=== PATIENT | male | born 1965 | race African-American/Black ===

== ENCOUNTER 2019-12-27 00:55 | Emergency (ER) | payer OTHER ==
[~2019-12-27] VITALS: Ht 175.3 cm; Wt 88.0 kg
[~2019-12-27 00:55] MED LIST: ANDROGEL1.25 GM TD; ANTIVERT25 MG PO; CITALOPRAM HBR40 MG PO; CLOMIPHENE CITR50 MG PO; CLONAZEPAM 1 MG1 M1 PO; COREG25 MG PO; HYDROCHLOROTH12.5 M1 PO; IBUPROFEN 600600 M1 PO; IBUPROFEN 800800 MG PO; LOPERAMIDE 2 MG2 M1 PO; METAXALONE800 MG PO; NORCO 5-325 TA1 EACH PO; PERCOCET 5-3251 EACH PO; PREDNISONE 20 M20 MG PO; PRINIVIL10 MG PO; PROBIOTIC1 EAC1 PO; PROMETHAZINE-C120 ML PO; PROTONIX40 M4 PO; TOPROL XL50 MG PO; ULTRAM 50MG TAB50 MG PO; VALIUM5 MG PO; ZOFRAN4 MG PO
[2019-12-27 02:22] VITALS: BP 178/111
== END 2019-12-27 14:51 | disposition home or self-care (01) ==
LOC: ER 00:55
DX: M54.5 Low back pain (principal); I10 Essential (primary) hypertension; F41.9 Anxiety disorder, unspecified; F32.9 Major depressive disorder, single episode, unspecified; Z88.1 Allergy status to other antibiotic agents; Z88.0 Allergy status to penicillin

== ENCOUNTER 2020-03-13 12:53 | Emergency (ER) | payer OTHER ==
[~2020-03-13] VITALS: Ht 175.3 cm; Wt 87.5 kg
[2020-03-13 13:48] LABS: HEMOGLOBIN 16.7 gm/dL (14.0-18.0); MCH 32.1 pg (26.0-34.0); MCV 94.4 fL (80.0-100.0); PLATELET COUNT 218 thou/uL (150-400); RBC 5.19 mil/uL (4.50-6.00); RDW 15.2 % (10.5-14.5); WBC 6.5 thou/uL (4.0-11.0)
[2020-03-13 13:59] LABS: CALCIUM 9.7 mg/dL (8.5-10.1); CREATININE 1.6 mg/dL (0.7-1.3); POTASSIUM 3.4 mmol/L (3.5-5.1)
[2020-03-13 14:06] LABS: ALBUMIN 3.8 g/dL (3.4-5.0); TOTAL BILIRUBIN 0.4 mg/dL (<0.1-1.0); TOTAL PROTEIN 7.5 g/dL (6.4-8.2)
[2020-03-13] MEDS ORDERED: BUTALB-APAP-CA1 EACH PO (15:00)
[2020-03-13 15:13] LABS: ABSOLUTE NEUTROPHILS 3.1 thou/uL (1.4-8.2); ANISOCYTOSIS SLIGHT
[2020-03-13 15:35] VITALS: BP 121/84
== END 2020-03-13 15:35 | disposition home or self-care (01) ==
LOC: ER 12:53
PROVIDERS: Physician Assistant
DX: R51 Headache (principal); F41.9 Anxiety disorder, unspecified; R53.1 Weakness; K30 Functional dyspepsia; I10 Essential (primary) hypertension; F32.9 Major depressive disorder, single episode, unspecified; Z86.73 Personal history of transient ischemic attack (TIA), and cerebral infarction without residual deficits; Z79.82 Long term (current) use of aspirin; Z79.899 Other long term (current) drug therapy; Z88.6 Allergy status to analgesic agent; Z88.0 Allergy status to penicillin; Z88.1 Allergy status to other antibiotic agents

== ENCOUNTER 2020-04-23 20:31 | Emergency (ER) | payer OTHER ==
[~2020-04-23] VITALS: Ht 175.3 cm; Wt 86.2 kg
[~2020-04-23 20:31] MED LIST changes: +BUTALB-APAP-CA1 EACH PO
[2020-04-23 21:29] LABS: HEMATOCRIT 51.5 % (42.0-52.0); HEMOGLOBIN 18.2 gm/dL (14.0-18.0); MCH 33.3 pg (26.0-34.0); MCHC 35.4 g/dL (28.0-37.0); MCV 94.1 fL (80.0-100.0); PLATELET COUNT 215 thou/uL (150-400); RBC 5.47 mil/uL (4.50-6.00); RDW 15.2 % (10.5-14.5); WBC 8.2 thou/uL (4.0-11.0)
[2020-04-23 21:34] LABS: CALCIUM 9.4 mg/dL (8.5-10.1); CREATININE 2.1 mg/dL (0.7-1.3); POTASSIUM 3.1 mmol/L (3.5-5.1)
[2020-04-23 21:40] LABS: ALBUMIN 4.1 g/dL (3.4-5.0); TOTAL BILIRUBIN 0.5 mg/dL (<0.1-1.0); TOTAL PROTEIN 8.1 g/dL (6.4-8.2)
[2020-04-23 21:54] LABS: URINE BILIRUBIN NEGATIVE (Negative); URINE BLOOD NEGATIVE (Negative); URINE CLARITY CLEAR; URINE COLOR YELLOW; URINE GLUCOSE-RANDOM* NEGATIVE (Negative); URINE KETONES NEGATIVE (Negative); URINE LEUKOCYTES-REFLEX NEGATIVE (Negative); URINE NITRITE-REFLEX NEGATIVE (Negative); URINE PROTEIN (DIPSTICK) NEGATIVE (Negative); URINE SPECIFIC GRAVITY 1.025 (1.005-1.035); URINE UROBILINOGEN 0.2 E.U./dl (0.2-1.0)
[2020-04-23 22:29] LABS: ABSOLUTE NEUTROPHILS 4.8 thou/uL (1.4-8.2); PLATELET ESTIMATE NORMAL
[2020-04-24] MEDS ORDERED: NORCO 5-325 TA1 EAC1 PO (02:39)
[2020-04-24] MEDS ORDERED: CIPROFLOXACIN500 M1 PO (02:39)
[2020-04-24] MEDS ORDERED: SENNA-DOCUSATE1 EAC1 PO (02:39)
[2020-04-24] MEDS ORDERED: FLAGYL500 M1 PO (02:39)
[2020-04-24 03:20] VITALS: BP 131/96
[2020-04-25] MEDS ORDERED: TESTOSTERONE BOOSTER PO (09:28)
[2020-04-25] MEDS ORDERED: DEPAKOTE 250MG250 MG PO (09:29)
[2020-04-25] MEDS ORDERED: HYDROCHLOROTHIA25 M1 PO (09:30)
[2020-04-25] MEDS ORDERED: PROBIOTIC1 EAC7 PO (09:31)
[2020-04-25] MEDS ORDERED: HYDROXYZINE PAM50 MG PO (09:31)
[2020-04-25] MEDS ORDERED: ASA81BEC PO (09:31)
[2020-04-25] MEDS ORDERED: VITAMIN C100 MG PO (09:31)
== END 2020-04-24 03:22 | disposition home or self-care (01) ==
LOC: ER 20:31
PROVIDERS: Emergency Medicine
DX: R10.32 Left lower quadrant pain (principal); R11.0 Nausea; R19.7 Diarrhea, unspecified; I10 Essential (primary) hypertension; Z88.0 Allergy status to penicillin; Z88.1 Allergy status to other antibiotic agents; Z88.6 Allergy status to analgesic agent; Z79.899 Other long term (current) drug therapy

== ENCOUNTER 2020-04-25 09:00 | Inpatient (IN) | payer OTHER ==
[~2020-04-25] VITALS: Ht 175.3 cm; Wt 103.4 kg
[2020-04-25 09:00] VITALS: BP 130/80
[~2020-04-25 09:00] MED LIST changes: +CIPROFLOXACIN500 M1 PO; +FLAGYL500 M1 PO; +NORCO 5-325 TA1 EAC1 PO; +SENNA-DOCUSATE1 EAC1 PO
[2020-04-25 09:25] LABS: HEMATOCRIT 49.5 % (42.0-52.0); HEMOGLOBIN 16.9 gm/dL (14.0-18.0); MCH 32.5 pg (26.0-34.0); MCHC 34.1 g/dL (28.0-37.0); MCV 95.4 fL (80.0-100.0); PLATELET COUNT 192 thou/uL (150-400); RBC 5.18 mil/uL (4.50-6.00); RDW 15.3 % (10.5-14.5); WBC 13.9 thou/uL (4.0-11.0)
[2020-04-25] MEDS ORDERED: TESTOSTERONE BOOSTER PO (09:28)
[2020-04-25] MEDS ORDERED: DEPAKOTE 250MG250 MG PO (09:29)
[2020-04-25] MEDS ORDERED: HYDROCHLOROTHIA25 M1 PO (09:30)
[2020-04-25] MEDS ORDERED: ASA81BEC PO (09:31)
[2020-04-25] MEDS ORDERED: PROBIOTIC1 EAC7 PO (09:31)
[2020-04-25] MEDS ORDERED: HYDROXYZINE PAM50 MG PO (09:31)
[2020-04-25] MEDS ORDERED: VITAMIN C100 MG PO (09:31)
[2020-04-25 09:34] LABS: CREATININE 1.8 mg/dL (0.7-1.3); POTASSIUM 3.3 mmol/L (3.5-5.1)
[2020-04-25 09:40] LABS: ALBUMIN 3.7 g/dL (3.4-5.0); TOTAL BILIRUBIN 0.7 mg/dL (0.2-1.0); TOTAL PROTEIN 7.6 g/dL (6.4-8.2)
[2020-04-25 09:47] LABS: ABSOLUTE NEUTROPHILS 10.4 thou/uL (1.4-8.2)
[2020-04-25 11:12] LABS: URINE BILIRUBIN NEGATIVE (Negative); URINE BLOOD NEGATIVE (Negative); URINE CLARITY CLEAR; URINE COLOR YELLOW; URINE GLUCOSE-RANDOM* NEGATIVE (Negative); URINE KETONES NEGATIVE (Negative); URINE LEUKOCYTES-REFLEX NEGATIVE (Negative); URINE NITRITE-REFLEX NEGATIVE (Negative); URINE PROTEIN (DIPSTICK) NEGATIVE (Negative); URINE SPECIFIC GRAVITY <= 1.005 (1.005-1.035); URINE UROBILINOGEN 0.2 E.U./dl (0.2-1.0)
[2020-04-25 13:45] LABS: AMP/METHAMP Negative (Negative); BARBITURATES Negative (Negative); BENZODIAZEPINES Negative (Negative); COCAINE Negative (Negative); METHADONE Negative (Negative); OPIATES POSITIVE (Negative); PCP Negative (Negative)
[2020-04-25 17:04] VITALS: BP 131/78
[2020-04-25 17:29] VITALS: BP 116/69
[2020-04-25 17:55] LABS: CHOLESTEROL 80 mg/dL (<200); HDL CHOLESTEROL 31 mg/dL (>40); LDL CHOLESTEROL 31 mg/dL (<100); TC:HDL 2.6 Ratio (Not establshd); TRIGLYCERIDE 91 mg/dL (<150); VLDL 18 mg/dL (<40)
--- NOTE | 2020-04-25 18:08 | NUR ---
REC REPORT ON PT AND REC PT AROUND 1806, A&0X4, TELE MONITORED, AMB INDEPENDENTLY, STATES HE WAS FEELING ILL IN HIS GUT FOR ABOUT EIGHT DAYS. CALL LIGHT AND ROOM INTRO. PT LIKES IT WARM, ALWAYS. OFFERRED WARM BLANKET. WILL NOTE ORDERS AND DO ADMISISON. ENCOURAGED PT TO USE CALL LIGHT FOR ANY NEEDS
--- NOTE | 2020-04-25 18:30 | NUR ---
PHARMACY: WAS UNABLE TO ENTER, HE STATES [facility] IN [place] OFF OF [address] AND [address] HE BELIEVES WAS UNABLE TO PLACE IN MED REC
[2020-04-25 19:27] VITALS: BP 130/72
[2020-04-26 00:17] VITALS: BP 105/71
[2020-04-26 03:08] LABS: GLYCOHEMOGLOBIN (HGB A1C) 5.3 % (4.8-5.6)
[2020-04-26 04:26] VITALS: BP 100/62
[2020-04-26 05:10] LABS: ALBUMIN 3.1 g/dL (3.4-5.0); CREATININE 1.6 mg/dL (0.7-1.3); MAGNESIUM 1.9 mg/dL (1.8-2.4); TOTAL BILIRUBIN 0.6 mg/dL (0.2-1.0); TOTAL PROTEIN 6.4 g/dL (6.4-8.2)
[2020-04-26 05:23] LABS: POTASSIUM 2.9 mmol/L (3.5-5.1)
--- NOTE | 2020-04-26 07:37 | NUR ---
PT REMAINS NPO, VSS, PRN PAIN MEDS GIVEN FOR ABDOMINAL PAIN, CRITICAL k+ REPLACED WITH 40MEQ OF k+ PO, VOIDING PER URINAL, WILL CON'T TO MONITOR PER PPOC, REPORT GIVEN TO NEXT SHIFT.
[2020-04-26 08:06] VITALS: BP 122/83
--- NOTE | 2020-04-26 17:37 | NUR ---
ASSUMED CARE OF PATIENT AT 0700. PATIENT COMPLAINTS OF GENERALIZED ABD PAIN AND USED PERCOCET X 1 AT THE BEGINNING OF THE SHIFT. PATIENT ADVANCED FROM NPO TO CLEAR LIQUIDS AND TOLERATED WELL. PATIENT UP ADLIB AND STEADY. IV ABX. PATIENT REDRAW OF POTASSIUM WAS WITHIN NORMAL LIMITS. PATIENT STATES THAT HIS PAIN IS EASING UP. PATIENT TO CONTINUE WITH POC.
[2020-04-26 21:17] VITALS: BP 137/78
[2020-04-27 04:04] LABS: MCH 32.7 pg (26.0-34.0); MCHC 34.3 g/dL (28.0-37.0); MCV 95.2 fL (80.0-100.0); RBC 4.31 mil/uL (4.50-6.00); RDW 14.8 % (10.5-14.5); WBC 8.8 thou/uL (4.0-11.0)
[2020-04-27 04:17] LABS: ALBUMIN 2.8 g/dL (3.4-5.0); CREATININE 1.4 mg/dL (0.7-1.3); MAGNESIUM 1.7 mg/dL (1.8-2.4); POTASSIUM 3.4 mmol/L (3.5-5.1); TOTAL BILIRUBIN 0.4 mg/dL (0.2-1.0); TOTAL PROTEIN 6.1 g/dL (6.4-8.2)
[2020-04-27 04:25] LABS: HEMOGLOBIN 14.1 gm/dL (14.0-18.0)
[2020-04-27 04:38] VITALS: BP 135/80
--- NOTE | 2020-04-27 06:18 | NUR ---
PATIENTS CARES WERE ASSUMED AT SHIFT CHANGE . PATIENT WAS ASSESSED AND MEDS WERE PASSED. PATIENT WAS VERY PAINFUL THOUGH THIS SHIFT. EVEN WITH THE OXY AND THE MORPHINE. PATIENT DOES CONTINUE WITH HIS CLEAR LIQUID DIET. HE HAD A VERY UNCOMFORTABLE NIGHT. HOURLY ROUNDS WERE DONE. THE BED IS IN A LOW AND LOCKED POSITION.
[2020-04-27 08:34] VITALS: BP 151/58
--- NOTE | 2020-04-27 14:28 | NUR ---
Chart reviewed. Pt noted to be pt pay with previous [employer] referrals from ER visits. Attempted to reach the pt x 2 to verify. Nursing reports that the pt is up ad parag in his room and that he uses the [facility]. The pt does have a pcp listed.
[2020-04-27 16:00] VITALS: BP 169/95
--- NOTE | 2020-04-27 20:09 | NUR ---
RECEIVED PT'S CARE AROUND 0740; PT. ON BED; RESTING WITH EYES CLOSED; EQUAL CHEST RISING NOTICED; SR ON THE MONITOR; DURING AM ASSESSMENT PT. AWAKE; AOX4; C/O PAIN OVER ABDOMEN; ST. PAIN MEDICATION DID HELP THROUGH THE NIGHT; PHYSICIAN NOTIFIED DURING ROUNDINGS; ORDERS ON PLACED; PRN PAIN MEDICATION GIVEN THROUGH THE DAY; FLUIDS RATE DECREASE TO 100 ML/H PER ORDER; EDUCATED ABOUT FALL PREVENTIONS & PAIN MANAGEMENT; EDUCATED ABOUT CL DIET; NEW IV STARTED OVER L. FA; ASSESSMENT CHARGED; FOLLOWING POC; PASSED ON REPORT;
[2020-04-27 20:25] VITALS: BP 148/75
--- NOTE | 2020-04-28 03:51 | NUR ---
ASSESSMENTS CHARTED, MEDS GIVEN CHARTED. RESTING IN BED DURING SHIFT C/O PAIN 6-9 DURING SHIFT, PAIN MEDS GIVEN CHARTED. RECEIVING FLUIDS, SINUS RHYTHM ON TELEMETRY, ON ROOM AIR, USING URINAL AT BEDSIDE, UP AT FARA IN ROOM. FALL PRECAUTIONS IN PLACE DURING SHIFT.
[2020-04-28 03:52] VITALS: BP 168/100
[2020-04-28 03:59] LABS: HEMATOCRIT 43.1 % (42.0-52.0); HEMOGLOBIN 14.6 gm/dL (14.0-18.0); MCH 32.2 pg (26.0-34.0); MCHC 33.9 g/dL (28.0-37.0); MCV 95.1 fL (80.0-100.0); RBC 4.53 mil/uL (4.50-6.00); RDW 14.6 % (10.5-14.5); WBC 8.4 thou/uL (4.0-11.0)
[2020-04-28 05:23] LABS: ALBUMIN 2.9 g/dL (3.4-5.0); CREATININE 1.4 mg/dL (0.7-1.3); POTASSIUM 3.2 mmol/L (3.5-5.1); TOTAL BILIRUBIN 0.5 mg/dL (0.2-1.0); TOTAL PROTEIN 6.5 g/dL (6.4-8.2)
[2020-04-28 05:46] LABS: CALCIUM 8.6 mg/dL (8.5-10.1)
[2020-04-28 07:46] VITALS: BP 142/94
[2020-04-28 11:38] VITALS: BP 161/96
[2020-04-28 15:31] VITALS: BP 151/89
--- NOTE | 2020-04-28 16:49 | NUR ---
ASSESSMENT CHARTED. PT ALERT AND ORIENTED. PRN PAIN MED GIVEN FOR ABD PAIN WITH PARTIAL RELIEF. ENCOURAGED TO AMBULATE IN THE ROOM. SEEN BY GI AND DR. MOURA. ORDERS NOTED. WILL CONTINUE TO MONITOR.
[2020-04-28 20:17] VITALS: BP 154/92
[2020-04-29 00:11] VITALS: BP 124/81
[2020-04-29 05:24] VITALS: BP 163/97
[2020-04-29 05:51] LABS: HEMATOCRIT 44.1 % (42.0-52.0); HEMOGLOBIN 15.2 gm/dL (14.0-18.0); MCH 32.6 pg (26.0-34.0); MCHC 34.5 g/dL (28.0-37.0); MCV 94.3 fL (80.0-100.0); RBC 4.67 mil/uL (4.50-6.00); RDW 14.7 % (10.5-14.5); WBC 8.6 thou/uL (4.0-11.0)
[2020-04-29 06:26] LABS: CALCIUM 8.5 mg/dL (8.5-10.1); CREATININE 1.3 mg/dL (0.7-1.3); PHOSPHORUS 2.5 mg/dL (2.5-4.9); POTASSIUM 3.4 mmol/L (3.5-5.1)
[2020-04-29 07:33] VITALS: BP 152/91
--- NOTE | 2020-04-29 15:34 | NUR ---
ASSUMED CARE AT 1100, SHIFT ASSESSMENT DONE, RECEIVING ANTIBIOTICS. REPORTED ABDOMINAL PAIN, PRN OXYCODONE GIVEN. ON FULL LIQUID DIET, TOLERATING WELL. WILL CONTINUE TO ASSESS AND ASSIST WITH ADLs NEEDED.
[2020-04-29 17:09] VITALS: BP 148/93
[2020-04-29 19:52] VITALS: BP 149/100
[2020-04-30 07:27] VITALS: BP 160/96
[2020-04-30 15:49] VITALS: BP 134/90
--- NOTE | 2020-04-30 17:46 | NUR ---
PT IS UP AD FARA IN HIS ROOM, VSS, PAIN CONTROLLED WITH ORAL ANALGESIC. PT IV IS PATENT RIGHT FOREARM. TOLERATING FULL LIQUID DIET. PT CALLS APPROPRIATELY, CALL LIGHT IN REACH. WILL CONTINUE TO MONITOR.
[2020-04-30 20:24] VITALS: BP 134/99
[2020-05-01 06:08] LABS: IgG 897 mg/dL (603-1613)
--- NOTE | 2020-05-01 07:38 | NUR ---
PROGRESS PT A/O X4 UP AD FARA VOIDING QS, REPORTS PAIN TO ABDOMEN AT A RATE OF 6 TO 8 TAKING OXYCODONE AND FENTANYL FOR BREAKTHROUGH PAIN. TOLERATING FULL LIQUID DIET PT LOOKING FORWARD TO ADVANCING DIET CONTINUE POC.
[2020-05-01 07:58] VITALS: BP 138/93
[2020-05-01 16:11] VITALS: BP 147/89
--- NOTE | 2020-05-01 16:17 | NUR ---
Received awake on bed. Due medications given as prescribed, able to swallow meds w/o difficulty. On room air. Vital signs stable. A+Ox4. On full liquid diet, tolerating well- no nausea, no vomiting and no abdominal pain noted- a/w physician's orders if ok to advance. Continent of bowel and bladder, able to use urinal and go to the toilet. With LR at 100cc/hr, infusing well at R AC. With mild weakness at L side due to history of CVA- assisted in ADLs and ambulating. Pt complained of constipation- seen and examined by GI PRIVATE TUTOR, Miralax given as prescribed, with suppository prescribed- given. To continue monitoring patient. Pt's diet progressed to soft fiber restricted for lunch- tolerated well; no nausea, no vomiting and no abdominal pain noted.
[2020-05-01 20:15] VITALS: BP 140/91
--- NOTE | 2020-05-02 06:00 | NUR ---
Pt. rested quietly at intervals during the night when checked on during frequent rounds. He c/o constipation and another bisacodyl suppository ordered with no result (see emar). Po pain med given for c/o abdominal pain with some relief noted. Bed alarm is on.
[2020-05-02 07:30] VITALS: BP 146/101
[2020-05-02] MEDS ORDERED: LEVAQUIN 500 M500 M2 PO (10:05)
[2020-05-02] MEDS ORDERED: FLAGYL500 M1 PO (10:05)
[2020-05-02] MEDS ORDERED: LISINOPRIL10 MG PO (10:12)
--- NOTE | 2020-05-02 14:38 | NUR ---
PT IS AOX4, VSS, NO PAIN ISSUES AT THIS TIME. PT UP AD FARA IN ROOM. PT HAD A BOWEL MOVEMENT. PT TOLERATING DIET. PT WILL DISCHARGE TODAY, TRYING TO CALL A RIDE. WILL LET ME KNOW WHAT TIME HE CAN LEAVE. CALL LIGHT IN REACH. WILL CONTINUE TO MONITOR.
[2020-05-02 15:11] VITALS: BP 145/91
[2020-05-02 17:14] VITALS: BP 147/101
== END 2020-05-02 19:43 | disposition home or self-care (01) | DRG 391 ==
LOC: ER 09:00 → 4W 13:04 → EROBS 13:04 → 2N 17:29 → 4W 04-29 09:57
PROVIDERS: Emergency Medicine; Nurse Practitioner; ADMIT Hospitalist
DX: K57.32 Diverticulitis of large intestine without perforation or abscess without bleeding (principal); K85.90 Acute pancreatitis without necrosis or infection, unspecified; I10 Essential (primary) hypertension; F32.9 Major depressive disorder, single episode, unspecified; F41.9 Anxiety disorder, unspecified; K21.9 Gastro-esophageal reflux disease without esophagitis; K59.00 Constipation, unspecified; Z86.73 Personal history of transient ischemic attack (TIA), and cerebral infarction without residual deficits; Z88.6 Allergy status to analgesic agent; Z88.1 Allergy status to other antibiotic agents; Z88.0 Allergy status to penicillin; Z88.8 Allergy status to other drugs, medicaments and biological substances; Z79.82 Long term (current) use of aspirin; Z79.899 Other long term (current) drug therapy; Z80.0 Family history of malignant neoplasm of digestive organs
CPT/HCPCS: 10047; 10081

== ENCOUNTER 2020-05-26 18:05 | Emergency (ER) | payer OTHER ==
[~2020-05-26] VITALS: Ht 175.3 cm; Wt 83.9 kg
[~2020-05-26 18:05] MED LIST changes: +ASA81BEC PO; +DEPAKOTE 250MG250 MG PO; +HYDROCHLOROTHIA25 M1 PO; +HYDROXYZINE PAM50 MG PO; +LEVAQUIN 500 M500 M2 PO; +LISINOPRIL10 MG PO; +PROBIOTIC1 EAC7 PO; +TESTOSTERONE BOOSTER PO; +VITAMIN C100 MG PO
[2020-05-26 18:28] LABS: URINE BILIRUBIN NEGATIVE (Negative); URINE BLOOD NEGATIVE (Negative); URINE CLARITY CLEAR; URINE COLOR YELLOW; URINE GLUCOSE-RANDOM* NEGATIVE (Negative); URINE KETONES NEGATIVE (Negative); URINE LEUKOCYTES-REFLEX NEGATIVE (Negative); URINE NITRITE-REFLEX NEGATIVE (Negative); URINE PROTEIN (DIPSTICK) NEGATIVE (Negative); URINE UROBILINOGEN 0.2 E.U./dl (0.2-1.0)
[2020-05-26 18:50] LABS: HEMATOCRIT 45.8 % (42.0-52.0); MCH 32.6 pg (26.0-34.0); MCHC 34.9 g/dL (28.0-37.0); MCV 93.4 fL (80.0-100.0); PLATELET COUNT 175 thou/uL (150-400); RBC 4.91 mil/uL (4.50-6.00); RDW 14.3 % (10.5-14.5); WBC 6.8 thou/uL (4.0-11.0)
[2020-05-26 19:02] LABS: CALCIUM 8.8 mg/dL (8.5-10.1); CREATININE 1.5 mg/dL (0.7-1.3); POTASSIUM 3.6 mmol/L (3.5-5.1)
[2020-05-26 19:08] LABS: ALBUMIN 3.4 g/dL (3.4-5.0); TOTAL BILIRUBIN 0.6 mg/dL (0.2-1.0); TOTAL PROTEIN 6.6 g/dL (6.4-8.2)
[2020-05-26 19:36] LABS: ABSOLUTE NEUTROPHILS 3.1 thou/uL (1.4-8.2); ATYPICAL LYMPHS 2 %
[2020-05-26] MEDS ORDERED: NORCO 5-325 TA1 EAC1 PO (20:42)
[2020-05-26] MEDS ORDERED: ZOFRAN ODT4 MG PO (20:42)
[2020-05-26] MEDS ORDERED: LEVAQUIN 750 M750 MG PO (20:42)
[2020-05-26 21:01] VITALS: BP 175/109
--- NOTE | 2020-05-27 09:59 | EKG ---
[facility] [place] [address] ELECTROCARDIOGRAM REPORT Name: KAY MEDEROS JERMAINE Room #: DEP [facility]#: [id number] Admission: 05/26/20 Attend Phys: Discharge: 05/26/20 Date of : 61 Report #: [id number] THIS REPORT FOR: cc: SHANNAN - Silvia family physician/PCP SHANNAN - Silvia family physician/PCP Kenneth Thibodeaux MD [facility] THIS REPORT FOR: //name// [facility] ED Test Date: 2020-05-26 Test Time: 18:29:31 Pat Name: KAY MEDEROS Department: Room: Gender: Specification Consultant: MYLES : 1965 Requested By: Jonelle Gunn Order Number: [id number] MD: Kenneth Thibodeaux Measurements Intervals [place] Rate: 84 P: 43 GA: 166 QRS: 19 QRSD: 95 T: 36 QT: 372 QTc: 440 Interpretive Statements Sinus rhythm RSR' in V1 or V2, right VCD Compared to ECG 10/04/2017 18:40:24 No significant changes Electronically Signed On 05-27-2020 9:59:00 CDT by Kenneth Thibodeaux [email or web address] <ELECTRONICALLY SIGNED> By: Kenneth Thibodeaux MD, FACC 05/27/20 0959 1829 1829 Kenneth Thibodeaux MD, [facility] /EPI
== END 2020-05-26 21:25 | disposition home or self-care (01) ==
LOC: ER 18:05
PROVIDERS: Nurse Practitioner Family
DX: K57.32 Diverticulitis of large intestine without perforation or abscess without bleeding (principal); I10 Essential (primary) hypertension; F32.9 Major depressive disorder, single episode, unspecified; F41.9 Anxiety disorder, unspecified; Z86.73 Personal history of transient ischemic attack (TIA), and cerebral infarction without residual deficits; Z79.899 Other long term (current) drug therapy; Z79.82 Long term (current) use of aspirin; Z88.6 Allergy status to analgesic agent; Z88.1 Allergy status to other antibiotic agents; Z88.0 Allergy status to penicillin

== ENCOUNTER 2020-07-21 12:24 | Emergency (ER) | payer OTHER ==
[~2020-07-21] VITALS: Ht 175.3 cm; Wt 84.8 kg
[~2020-07-21 12:24] MED LIST changes: +LEVAQUIN 750 M750 MG PO; +ZOFRAN ODT4 MG PO
[2020-07-21] MEDS ORDERED: LIPITOR 20 MG T20 M1 PO (13:03)
[2020-07-21 13:11] LABS: HEMATOCRIT 51.9 % (42.0-52.0); MCH 32.1 pg (26.0-34.0); MCHC 34.7 g/dL (28.0-37.0); MCV 92.3 fL (80.0-100.0); PLATELET COUNT 258 thou/uL (150-400); RBC 5.62 mil/uL (4.50-6.00); RDW 13.8 % (10.5-14.5); WBC 6.4 thou/uL (4.0-11.0)
[2020-07-21 13:20] LABS: ANION GAP 9 mmol/L (7-16); BUN 16 mg/dL (7-18); CALCIUM 9.8 mg/dL (8.5-10.1); CHLORIDE 103 mmol/L (98-107); CO2 27 mmol/L (21-32); CREATININE 1.7 mg/dL (0.7-1.3); GLUCOSE 94 mg/dL (74-106); SODIUM 139 mmol/L (136-145)
[2020-07-21 13:29] LABS: TROPONIN-I <0.06 ng/mL (<0.06)
[2020-07-21] MEDS ORDERED: NORCO 5-325 TA1 EAC2 PO (14:08)
[2020-07-21] MEDS ORDERED: KLOR-CON 1010 MEQ PO (14:08)
[2020-07-21 14:12] LABS: ABSOLUTE NEUTROPHILS 2.9 thou/uL (1.4-8.2); ANISOCYTOSIS 1+
[2020-07-21 14:23] VITALS: BP 147/98
--- NOTE | 2020-07-23 08:38 | EKG ---
[facility] [place] [address] ELECTROCARDIOGRAM REPORT Name: KAY MEDEROS JERMAINE Room #: DEP [facility].#: [id number] Admission: 07/21/20 Attend Phys: Discharge: 07/21/20 Date of : 61 Report #: [id number] THIS REPORT FOR: cc: SHANNAN Vega family physician/PCP SHANNAN - Silvia family physician/PCP Kenneth Thibodeaux MD [facility] THIS REPORT FOR: //name// [facility] ED Test Date: 2020-07-21 Test Time: 12:39:25 Pat Name: KAY MEDEROS Department: Room: Gender: Scale Clerk: macie : 1965 Requested By: Herlinda Kulkarni Order Number: [id number] MD: Kenneth Thibodeaux Measurements Intervals [place] Rate: 87 P: 38 AR: 174 QRS: 25 QRSD: 99 T: 61 QT: 384 QTc: 462 Interpretive Statements Sinus rhythm RSR' in V1 or V2, right VCD Compared to ECG 05/26/2020 18:29:31 No significant change was found Electronically Signed On 07-23-2020 8:38:34 CDT by Kenneth Thibodeaux [email or web address] <ELECTRONICALLY SIGNED> By: Kenneth Thibodeaux MD, [facility] 07/23/20 0838 1239 1239 Kenneth Thibodeaux MD, [facility] /EPI
== END 2020-07-21 14:23 | disposition home or self-care (01) ==
LOC: ER 12:24
PROVIDERS: Physician Assistant
DX: R07.89 Other chest pain (principal); E87.6 Hypokalemia; I10 Essential (primary) hypertension; Z79.82 Long term (current) use of aspirin; Z79.899 Other long term (current) drug therapy; Z88.0 Allergy status to penicillin; Z88.1 Allergy status to other antibiotic agents; Z88.6 Allergy status to analgesic agent; Z88.8 Allergy status to other drugs, medicaments and biological substances

== ENCOUNTER 2020-08-27 19:07 | Emergency (ER) | payer OTHER ==
[~2020-08-27] VITALS: Ht 175.3 cm; Wt 90.7 kg
[~2020-08-27 19:07] MED LIST changes: +KLOR-CON 1010 MEQ PO; +LIPITOR 20 MG T20 M1 PO; +NORCO 5-325 TA1 EAC2 PO
[2020-08-27 20:37] LABS: HEMATOCRIT 49.8 % (42.0-52.0); HEMOGLOBIN 16.8 gm/dL (14.0-18.0); MCH 31.2 pg (26.0-34.0); MCHC 33.7 g/dL (28.0-37.0); MCV 92.7 fL (80.0-100.0); PLATELET COUNT 232 thou/uL (150-400); RBC 5.37 mil/uL (4.50-6.00); RDW 14.7 % (10.5-14.5); WBC 7.5 thou/uL (4.0-11.0)
[2020-08-27 20:40] LABS: URINE BILIRUBIN NEGATIVE (Negative); URINE BLOOD NEGATIVE (Negative); URINE CLARITY CLEAR; URINE COLOR YELLOW; URINE GLUCOSE-RANDOM* NEGATIVE (Negative); URINE KETONES NEGATIVE (Negative); URINE LEUKOCYTES-REFLEX NEGATIVE (Negative); URINE NITRITE-REFLEX NEGATIVE (Negative); URINE PROTEIN (DIPSTICK) 2+ (Negative); URINE SPECIFIC GRAVITY 1.025 (1.005-1.035); URINE UROBILINOGEN 0.2 E.U./dl (0.2-1.0)
[2020-08-27 20:45] LABS: CALCIUM 9.4 mg/dL (8.5-10.1); CREATININE 1.4 mg/dL (0.7-1.3); MUCUS 0-3 Light strn/LPF (None Seen); POTASSIUM 3.2 mmol/L (3.5-5.1); URINE WBC-REFLEX 0-5 Rare /HPF (0-5)
[2020-08-27 20:47] LABS: BACTERIA-REFLEX 1-9 Few /HPF (None Seen); CRYSTALS None Seen /LPF (None Seen); URINE RBC 0-2 Rare /HPF (0-2)
[2020-08-27 20:48] LABS: HYALINE CASTS 4-10 Moderate /LPF (None Seen); SQUAMOUS 0-3 Few /LPF (0-3)
[2020-08-27 20:52] LABS: ALBUMIN 4.9 g/dL (3.4-5.0); TOTAL BILIRUBIN 0.5 mg/dL (0.2-1.0); TOTAL PROTEIN 7.8 g/dL (6.4-8.2)
[2020-08-27 21:13] LABS: ABSOLUTE NEUTROPHILS 3.5 thou/uL (1.4-8.2)
[2020-08-27 21:14] LABS: LARGE PLATELETS FEW; PLATELET ESTIMATE NORMAL
[2020-08-27] MEDS ORDERED: BACTRIM DS TAB1 EACH PO (22:12)
[2020-08-27] MEDS ORDERED: LIDOCAINE PAIN1 EACH TRANSDERM (22:12)
[2020-08-27] MEDS ORDERED: TRAMADOL 50 MG50 MG PO (22:12)
[2020-08-27 22:35] VITALS: BP 132/78
== END 2020-08-27 22:30 | disposition home or self-care (01) ==
LOC: ER 19:07
PROVIDERS: Physician Assistant; Student in an Organized Health Care Education/Training Program
DX: R10.9 Unspecified abdominal pain (principal); I10 Essential (primary) hypertension; Z79.82 Long term (current) use of aspirin; Z79.899 Other long term (current) drug therapy; Z88.0 Allergy status to penicillin; Z88.1 Allergy status to other antibiotic agents; Z88.6 Allergy status to analgesic agent; Z88.8 Allergy status to other drugs, medicaments and biological substances

== ENCOUNTER 2020-09-26 14:13 | Emergency (ER) | payer OTHER ==
[~2020-09-26] VITALS: Ht 175.3 cm; Wt 85.3 kg
[~2020-09-26 14:13] MED LIST changes: +BACTRIM DS TAB1 EACH PO; +LIDOCAINE PAIN1 EACH TRANSDERM; +TRAMADOL 50 MG50 MG PO
[2020-09-26] MEDS ORDERED: HYDROCHLOROTHIA25 M2 PO (14:41)
[2020-09-26 15:01] LABS: HEMOGLOBIN 17.6 gm/dL (14.0-18.0); MCH 31.6 pg (26.0-34.0); MCHC 33.8 g/dL (28.0-37.0); MCV 93.4 fL (80.0-100.0); PLATELET COUNT 232 thou/uL (150-400); RBC 5.57 mil/uL (4.50-6.00); RDW 14.8 % (10.5-14.5); WBC 6.7 thou/uL (4.0-11.0)
[2020-09-26 15:07] LABS: CALCIUM 9.9 mg/dL (8.5-10.1); CREATININE 1.7 mg/dL (0.7-1.3); POTASSIUM 3.2 mmol/L (3.5-5.1)
[2020-09-26 15:13] LABS: ALBUMIN 4.1 g/dL (3.4-5.0); TOTAL BILIRUBIN 0.6 mg/dL (0.2-1.0); TOTAL PROTEIN 8.2 g/dL (6.4-8.2)
[2020-09-26 15:15] LABS: APTT 33.6 Seconds (24.5-32.8); INR 1.1; PROTIME 11.4 Seconds (9.3-11.4)
[2020-09-26 15:38] LABS: ABSOLUTE NEUTROPHILS 3.5 thou/uL (1.4-8.2); PLATELET ESTIMATE NORMAL
[2020-09-26] MEDS ORDERED: BENTYL 10 MG CA10 MG PO (16:13)
[2020-09-26 16:28] VITALS: BP 147/92
== END 2020-09-26 16:30 | disposition home or self-care (01) ==
LOC: ER 14:13
PROVIDERS: Physician Assistant
DX: R10.32 Left lower quadrant pain (principal); I10 Essential (primary) hypertension; Z79.899 Other long term (current) drug therapy; Z88.0 Allergy status to penicillin; Z88.1 Allergy status to other antibiotic agents; Z88.8 Allergy status to other drugs, medicaments and biological substances; Z88.6 Allergy status to analgesic agent

== ENCOUNTER 2021-02-15 02:06 | Emergency (ER) | payer OTHER ==
[~2021-02-15] VITALS: Ht 170.2 cm; Wt 90.7 kg
[~2021-02-15 02:06] MED LIST changes: +BENTYL 10 MG CA10 MG PO; +HYDROCHLOROTHIA25 M2 PO
[2021-02-15 03:45] VITALS: BP 129/78
== END 2021-02-15 03:47 | disposition home or self-care (01) ==
LOC: ER 02:06
DX: G44.209 Tension-type headache, unspecified, not intractable (principal); I10 Essential (primary) hypertension; Z88.6 Allergy status to analgesic agent; Z88.1 Allergy status to other antibiotic agents; Z88.0 Allergy status to penicillin; Z79.899 Other long term (current) drug therapy; Z79.82 Long term (current) use of aspirin; Z86.73 Personal history of transient ischemic attack (TIA), and cerebral infarction without residual deficits; Z90.49 Acquired absence of other specified parts of digestive tract; Z98.890 Other specified postprocedural states

== ENCOUNTER 2021-02-27 01:37 | Emergency (ER) | payer OTHER ==
[~2021-02-27] VITALS: Ht 175.3 cm; Wt 92.5 kg
[2021-02-27 02:20] LABS: ABSOLUTE NEUTROPHILS 3.7 thou/uL (1.4-8.2); BASOPHILS 0.9 % (0.0-2.0); HEMATOCRIT 46.5 % (42.0-52.0); HEMOGLOBIN 15.6 gm/dL (14.0-18.0); LYMPHOCYTES 34.6 % (24.0-44.0); MCH 31.1 pg (26.0-34.0); MCHC 33.5 g/dL (28.0-37.0); MCV 92.8 fL (80.0-100.0); MONOCYTES 14.9 % (1.0-8.0); PLATELET COUNT 231 thou/uL (150-400); POLYS 46.6 % (36.0-66.0); RBC 5.01 mil/uL (4.50-6.00); RDW 14.2 % (10.5-14.5)
[2021-02-27 02:30] LABS: CREATININE 1.5 mg/dL (0.7-1.3); POTASSIUM 3.1 mmol/L (3.5-5.1)
[2021-02-27 02:36] LABS: ALBUMIN 3.8 g/dL (3.4-5.0); TOTAL BILIRUBIN 0.4 mg/dL (0.2-1.0); TOTAL PROTEIN 7.3 g/dL (6.4-8.2)
[2021-02-27 03:11] LABS: CSF CLARITY CLEAR; CSF COLOR COLORLESS; VOLUME 4 ml
[2021-02-27 03:17] LABS: CSF GLUCOSE 70 mg/dL (40-70)
[2021-02-27 03:52] LABS: CSF RBC 1.67 /mm3; CSF WBC 0.56 /mm3 (0-10)
[2021-02-27] MEDS ORDERED: ULTRAM 50MG TAB50 MG PO (04:00)
[2021-02-27 04:23] LABS: CSF EOSINOPHILS 0 %; CSF POLYS 10 %
[2021-02-27 04:24] LABS: CSF LYMPHOCYTES 75 % (40-80)
[2021-02-27 04:33] VITALS: BP 117/75
== END 2021-02-27 04:15 | disposition home or self-care (01) ==
LOC: ER 01:37
PROVIDERS: Emergency Medicine
DX: R51.9 Headache, unspecified (principal); I10 Essential (primary) hypertension; Z90.49 Acquired absence of other specified parts of digestive tract; Z79.82 Long term (current) use of aspirin; Z79.899 Other long term (current) drug therapy; Z88.0 Allergy status to penicillin; Z88.1 Allergy status to other antibiotic agents; Z88.6 Allergy status to analgesic agent; Z88.8 Allergy status to other drugs, medicaments and biological substances

== ENCOUNTER 2021-03-24 21:43 | Emergency (ER) | payer OTHER ==
[~2021-03-24] VITALS: Ht 175.3 cm; Wt 92.5 kg
[2021-03-24 21:47] VITALS: BP 151/91
[2021-03-24] MEDS ORDERED: PREDNISONE 20 M20 MG PO (22:10)
[2021-03-24] MEDS ORDERED: VISTARIL50 MG PO (22:10)
== END 2021-03-24 22:30 | disposition home or self-care (01) ==
LOC: ER 21:43
DX: T78.40XA Allergy, unspecified, initial encounter (principal); I10 Essential (primary) hypertension; Z90.49 Acquired absence of other specified parts of digestive tract; Z79.899 Other long term (current) drug therapy; Z88.0 Allergy status to penicillin; Z88.1 Allergy status to other antibiotic agents; Z88.6 Allergy status to analgesic agent; Z88.8 Allergy status to other drugs, medicaments and biological substances; Y92.89 Other specified places as the place of occurrence of the external cause

== ENCOUNTER 2021-04-14 19:59 | Emergency (ER) | payer OTHER ==
[~2021-04-14] VITALS: Ht 175.3 cm; Wt 92.5 kg
--- NOTE | ~2021-04-14 | EMS ---
[address] [address] EMS Patient Care Report Name: KAY MEDEROS Room #: DEP [facility]#: [id number] Admission: 04/14/21 Attend Phys: Discharge: 04/14/21 Date of : 61 Report #: [id number] THIS REPORT FOR: //name// Report Transmitted: 04/15/2021 23:02 EMS Care Summary [place], [place]/[facility] Incident [id number] @ 04/14/2021 19:26 Incident Location [address] [address] Patient KAY MEDEROS Male, 55 Years 1965 Patient Address [address] [address] Patient History Hypertension (HTN),Stroke/CVA,Anxiety Disorder (Panic Attacks), Patient Allergies Penicillin allergy, Patient Medications Clonazepam, Carvedilol, Chief Complaint Headache and dizziness Disposition Transported No Lights/[place] Dispatch Reason Stroke/CVA Transported To [facility] Narrative Initially dispatched with [facility] for a stroke. Upon EMS arrival patient was found sitting on his bed, field stroke exam being performed by [facility] FF/Medic, showing no obvious signs of distress, CAOx4. Patient stated that he [facility] [address] [place] [address] EMS Patient Care Report Name: KAY MEDEROS Room #: DEP ER Dorie#: [id number] Admission: 04/14/21 Attend Phys: Discharge: 04/14/21 Date of : 61 Report #: [id number] has a history of a stroke, hypertension, and anxiety. Patient reports that he has had a headache for two days that has not been resolved with over the counter medications and has been out of his Clonazipam for five days. He stated that he has had an increase of stress in his life lately. Field stroke exam was negative for deficits. Patient reports that approximately 10 minutes prior to calling 911 he had an onset of dizziness and muscle tremors in his cheeks. He stated that the dizziness comes and goes, but the tremors have been constant. Patient was assisted onto the stretcher, secured, and loaded into the ambulance. He was transported to [facility] without incident. Full report was given to RN prior to signing this document. Initial Vitals @19:35P: 105,R: 18,BP: 173/108,GCS: 15,SpO2: 97,Revised Trauma: 12, @19:46P: 99,R: 18,BP: 153/101,Pain: 0/10,GCS: 15,Glucose: 119,SpO2: 96,Revised Trauma: 12, Assessments @19:35MENTAL:No Abnormalities,SKIN:No Abnormalities,HEENT:Head/Face: KEVIN,Eyes: No Abnormalities,Neck/Airway: No Abnormalities,LUNG SOUNDS:ABDOMEN:PELVIS//GI:EXTREMITIES:Left Arm: No Abnormalities,Right Arm: No Abnormalities,Left Leg: No Abnormalities,Right Leg: No Abnormalities,PULSE:NEURO:Tremors, Impression Headache Procedures @19:35ALS AssessmentResponse: UnchangedSucceeded Timeline 19:24,Call Received 19:24,Dispatch Notified 19:26,Dispatched 19:27,En Route 19:32,On Scene 19:35,At Patient 19:35,ALS Assessment,Response: UnchangedSucceeded, 19:35,BP: 173/108 M,PULSE: 105,RR: 18 R,SPO2: 97 Ox,ETCO2: ,BG: ,PAIN: ,GCS: 15, 19:46,BP: 153/101 M,PULSE: 99,RR: 18 R,SPO2: 96 Ox,ETCO2: ,B,PAIN: 0,GCS: 15, 19:50,Depart Scene 19:56,At Destination 20:04,Call Closed Disclaimer [address] [address] EMS Patient Care Report Name: KAY MEDEROS JERMAINE Room #: DEP Dorie#: [id number] Admission: 04/14/21 Attend Phys: Discharge: 04/14/21 Date of : 61 Report #: [id number] v1.1 Copyright 2020 [employer] This EMS Care Summary contains data elements from the applicable legal record (which may be displayed differently). It is designed to provide pertinent information for the following purposes: continuity of care, clinical quality, and state data reporting. The complete legal record is available to ED staff and administrators of the receiving hospital in [facility]'s Patient Tracker. All data is provided "as is."
[~2021-04-14 19:59] MED LIST changes: +VISTARIL50 MG PO
[2021-04-14 20:46] LABS: ABSOLUTE NEUTROPHILS 5.7 thou/uL (1.4-8.2); BASOPHILS 0.9 % (0.0-2.0); EOSINOPHILS 2.1 % (0.0-3.0); HEMATOCRIT 47.7 % (42.0-52.0); HEMOGLOBIN 16.8 gm/dL (14.0-18.0); MCH 32.2 pg (26.0-34.0); MCHC 35.1 g/dL (28.0-37.0); MCV 91.8 fL (80.0-100.0); MONOCYTES 11.6 % (1.0-8.0); PLATELET COUNT 248 thou/uL (150-400); POLYS 61.4 % (36.0-66.0); RDW 14.6 % (10.5-14.5); WBC 9.2 thou/uL (4.0-11.0)
[2021-04-14 20:56] LABS: ANION GAP 12 mmol/L (7-16); BUN 12 mg/dL (7-18); CHLORIDE 103 mmol/L (98-107); CO2 26 mmol/L (21-32); CREATININE 1.7 mg/dL (0.7-1.3); GLUCOSE 115 mg/dL (74-106); POTASSIUM 3.3 mmol/L (3.5-5.1); SODIUM 141 mmol/L (136-145)
[2021-04-14 21:08] LABS: ALBUMIN 4.1 g/dL (3.4-5.0); DIRECT BILIRUBIN < 0.1 mg/dL (<0.1-0.2); MAGNESIUM 2.2 mg/dL (1.8-2.4); SGOT 18 U/L (15-37); SGPT 37 U/L (30-65); TOTAL BILIRUBIN 0.6 mg/dL (0.2-1.0); TROPONIN-I <0.06 ng/mL (<0.06)
[2021-04-14 21:32] VITALS: BP 145/84
[2021-04-14] MEDS ORDERED: NORVASC5 MG PO (21:40)
[2021-04-14] MEDS ORDERED: KLOR-CON 1010 MEQ PO (21:43)
[2021-04-14] MEDS ORDERED: ATIVAN1 M1 PO (21:43)
--- NOTE | 2021-04-15 08:48 | EKG ---
[place] [address] [facility] [place] [address] ELECTROCARDIOGRAM REPORT Name: REJI MEDEROSNIKIA DEAN [facility] [id number] Admission: 04/14/21 Attend Phys: Discharge: 04/14/21 Date of : 61 Report #: [id number] [facility] ED Test Date: 2021-04-14 Test Time: 20:23:49 Pat Name: KAY MEDEROS Department: Room: Gender: Neon Light Installer: am : 1965 Requested By: Gentry Salas Order Number: [id number] MD: Kenneth Thibodeaux Measurements Intervals [place] Rate: 81 P: 44 [place]: 170 QRS: 30 QRSD: 98 T: 31 QT: 371 QTc: 431 Interpretive Statements Sinus rhythm Normal tracing Compared to ECG 07/21/2020 12:39:25 No significant changes Electronically Signed On 04-15-2021 8:47:57 CDT by Kenneth Thibodeaux [email or web address] <ELECTRONICALLY SIGNED> By: Kenneth Thibodeaux MD, [facility] 04/15/21 0847 22 22 Kenneth Thibodeaux MD, FACC /EPI
== END 2021-04-14 22:29 | disposition home or self-care (01) ==
LOC: ER 19:59
PROVIDERS: Emergency Medicine
DX: R51.9 Headache, unspecified (principal); F41.9 Anxiety disorder, unspecified; I10 Essential (primary) hypertension; E87.6 Hypokalemia; Z88.6 Allergy status to analgesic agent; Z88.0 Allergy status to penicillin; Z88.1 Allergy status to other antibiotic agents; Z90.89 Acquired absence of other organs; Z86.73 Personal history of transient ischemic attack (TIA), and cerebral infarction without residual deficits

== ENCOUNTER 2021-05-21 18:51 | Emergency (ER) | payer OTHER ==
[~2021-05-21] VITALS: Ht 175.3 cm; Wt 89.8 kg
[2021-05-21 18:51] VITALS: BP 139/85
[~2021-05-21 18:51] MED LIST changes: +ATIVAN1 M1 PO; +NORVASC5 MG PO
[2021-05-21] MEDS ORDERED: ZPAK PO (20:09)
== END 2021-05-21 21:29 | disposition home or self-care (01) ==
LOC: ER 18:51
DX: H66.91 Otitis media, unspecified, right ear (principal); I10 Essential (primary) hypertension; Z79.82 Long term (current) use of aspirin; Z79.899 Other long term (current) drug therapy; Z90.49 Acquired absence of other specified parts of digestive tract; Z98.890 Other specified postprocedural states

== ENCOUNTER 2021-06-04 21:21 | Emergency (ER) | payer OTHER ==
[~2021-06-04] VITALS: Ht 175.3 cm; Wt 88.9 kg
[~2021-06-04 21:21] MED LIST changes: +ZPAK PO
[2021-06-04 21:24] VITALS: BP 149/97
[2021-06-04] MEDS ORDERED: MEDROLDOSEPACK PO (22:01)
[2021-06-04] MEDS ORDERED: FLEXERIL PO (22:01)
== END 2021-06-04 22:45 | disposition home or self-care (01) ==
LOC: ER 21:21
DX: S39.012A Strain of muscle, fascia and tendon of lower back, initial encounter (principal); I10 Essential (primary) hypertension; F32.9 Major depressive disorder, single episode, unspecified; F41.9 Anxiety disorder, unspecified; Z90.49 Acquired absence of other specified parts of digestive tract; Z98.890 Other specified postprocedural states; Z79.82 Long term (current) use of aspirin; Z79.899 Other long term (current) drug therapy; Z88.1 Allergy status to other antibiotic agents; Z88.6 Allergy status to analgesic agent; Z88.0 Allergy status to penicillin; X58.XXXA Exposure to other specified factors, initial encounter; Y93.89 Activity, other specified; Y92.098 Other place in other non-institutional residence as the place of occurrence of the external cause; Y99.8 Other external cause status

== ENCOUNTER 2022-01-04 16:55 | Inpatient (IN) | payer OTHER ==
[~2022-01-04] VITALS: Ht 175.3 cm; Wt 85.3 kg
--- NOTE | ~2022-01-04 | EMS ---
[address] [address] EMS Patient Care Report Name: KAY CRAVEN Room #: 355-P ADM IN M.R.#: [id number] Admission: 01/04/22 Attend Phys: Alberto Kapoor MD Discharge: Date of : 61 Report #: [id number] THIS REPORT FOR: //name// Report Transmitted: 01/07/2022 12:51 EMS Care Summary [place], [place]/[facility] Incident [id number] @ 01/04/2022 16:00 Incident Location [address] [address] Patient KAY CRAVEN Male, 56 Years 1965 Patient Address [address] [place] [address] Patient History Stroke/CVA,Post Traumatic Stress Disorder (PTSD), Patient Allergies No known allergies, Patient Medications ASA, Chief Complaint diarrhea Disposition Transported No Lights/[place] Dispatch Reason Sick Person Transported To [facility] Narrative 56 y/o male with diarrhea for 2 weeks Upon arrival the pt was sitting in his recliner in his living room. The pt is [address] [address] EMS Patient Care Report Name: KAY CRAVEN Room #: 355-P ADM IN MJazmyn.#: [id number] Admission: 01/04/22 Attend Phys: Alberto Kapoor MD Discharge: Date of : 61 Report #: [id number] awake, conscious A&O 4 with a GCS of 15. He has a patent airway, breathing is normal, and has a strong reg radial pulse. Pt is c/o diarrhea x 2 weeks. He also has been out of his PTSD medication for the last 2 weeks as well which is increasing his worry about being sick. The pt pt was assisted getting dressed. He was assisted to the cot, assisted to a position of comfort, secured to the cot, and loaded into the ambulance. VS were obtained. D-63. Pt was given a rice crispy treat to eat to increase his blood sugar. The pt was transported to [place] with out incident or changes to [place].. EMS returned to service. Initial Vitals @16:41P: 113,R: 14,BP: 153/90,Pain: 0/10,GCS: 15,Glucose: 63,SpO2: 91,Revised Trauma: 12, Assessments @16:47MENTAL:Person Oriented,Time Oriented,Event Oriented,Place Oriented,SKIN:HEENT:Head/Face: No Abnormalities,Neck/Airway: No Abnormalities,LUNG SOUNDS:General: No Abnormalities,ABDOMEN:General: No Abnormalities,PELVIS//GI:No Abnormalities,EXTREMITIES:Capillary Refill: Left Upper: < 2 Sec,Capillary Refill: Right Upper: < 2 Sec,Left Arm: No Abnormalities,Right Arm: No Abnormalities,Left Leg: No Abnormalities,Right Leg: No Abnormalities,PULSE:Radial: 2+ Normal,NEURO:No Abnormalities, Impression Diarrhea Procedures @16:46 ALS Assessment Response: UnchangedSucceeded Timeline 15:58,Call Received 15:58,Dispatch Notified 16:00,Dispatched 16:02,En Route 16:13,On Scene 16:14,At Patient 16:41,BP: 153/90 M,PULSE: 113,RR: 14 R,SPO2: 91 Ox,ETCO2: ,B,PAIN: 0,GCS: 15, 16:45,Depart Scene 16:46,ALS Assessment,Response: UnchangedSucceeded, 16:50,At Destination 17:05,Call Closed Disclaimer v1.1 Copyright 2021 [employer] This EMS Care Summary contains data elements from the applicable legal record [address] [address] EMS Patient Care Report Name: KAY CRAVEN Room #: 355-P ADM IN M.R.#: [id number] Admission: 01/04/22 Attend Phys: Alberto Kapoor MD Discharge: Date of : 61 Report #: [id number] (which may be displayed differently). It is designed to provide pertinent information for the following purposes: continuity of care, clinical quality, and state data reporting. The complete legal record is available to ED staff and administrators of the receiving hospital in [employer]'s Patient Tracker. All data is provided "as is."
[~2022-01-04 16:55] MED LIST changes: +FLEXERIL PO; +MEDROLDOSEPACK PO
[2022-01-04 16:58] VITALS: BP 143/85
[2022-01-04 17:45] LABS: ABSOLUTE NEUTROPHILS 7.5 thou/uL (1.4-8.2); BASOPHILS 0.2 % (0.0-2.0); EOSINOPHILS 0.1 % (0.0-3.0); HEMATOCRIT 48.6 % (42.0-52.0); HEMOGLOBIN 16.8 gm/dL (14.0-18.0); LYMPHOCYTES 13.6 % (24.0-44.0); MCH 30.5 pg (26.0-34.0); MCHC 34.5 g/dL (28.0-37.0); MCV 88.4 fL (80.0-100.0); MONOCYTES 11.7 % (1.0-8.0); PLATELET COUNT 257 thou/uL (150-400); POLYS 74.4 % (36.0-66.0); RDW 15.6 % (10.5-14.5); WBC 10.1 thou/uL (4.0-11.0)
[2022-01-04 18:01] LABS: CALCIUM 9.2 mg/dL (8.5-10.1); POTASSIUM 4.2 mmol/L (3.5-5.1)
[2022-01-04 18:06] LABS: ALBUMIN 3.5 g/dL (3.4-5.0)
[2022-01-04] MEDS ORDERED: LEXAPRO 10 MG T10 M2 PO (19:12)
[2022-01-04 21:01] VITALS: BP 115/69
[2022-01-04 21:03] VITALS: BP 113/71
[2022-01-04 22:16] VITALS: BP 127/85
--- NOTE | 2022-01-05 01:08 | NUR ---
PT ADMITTED FROM TO [facility] AROUND 2200. ALERT AND ORIENTED X4 BUT IS SLOW TO ANSWER QUESTIONS. PT COVID +. C/O WEAKNESS,SOA,COUGH, DIARRHEA AND URINARY AND STOOL INCONTINENCE AT TIMES WHICH HE STATED IS NEW. PT STATED HE FEELS LIKE HE IS LOSING HIS MIND, BECOMING WEAKER AND WOULD LIKE SOME ASSISTANCE FOR GETTING HELP AT DISCHARGE REGARDING POSSIBLE PLACEMENT TO REHAB OR SNF. ETC. INSTRUCTED PT ON FALL PRECAUTIONS. ORIENTED PT TO AND CALL LIGHT. BED DOWN CALL LIGHT IN REACH. BED ALARM IS ON. NS INFUSING AT 75ML/HR. PT WAS ABLE TO SWALLOW MEDS WHOLE BUT 1 AT A TIME. NOTIFIED CREDIT COUNSELOR RE DDIMER 1.17. VQ SCAN IN AM.VSS. AFEBRILE. RR 22-24 ON 2LNC. SAT 92%.
[2022-01-05 04:44] VITALS: BP 127/85
[2022-01-05 06:27] LABS: URINE BILIRUBIN NEGATIVE (Negative); URINE BLOOD 2+ (Negative); URINE CLARITY CLEAR; URINE COLOR YELLOW; URINE GLUCOSE-RANDOM* NEGATIVE (Negative); URINE KETONES NEGATIVE (Negative); URINE LEUKOCYTES-REFLEX NEGATIVE (Negative); URINE NITRITE-REFLEX NEGATIVE (Negative); URINE PROTEIN (DIPSTICK) 3+ (Negative); URINE SPECIFIC GRAVITY >= 1.030 (1.005-1.035)
--- NOTE | 2022-01-05 06:32 | NUR ---
PT IS RESTING QUIETLY PRESENTLY. INC OF STOOL X1. BED CAHNGED. PT STATED HE HAD "NIGHT SWEAT" . PT DRINKING PO FLUIDS AND IVF INFUSING WITHOUT DIFFICULTY. VOIDED X1. URINE SENT TO LAB.
[2022-01-05 06:42] LABS: HYALINE CASTS 0-3 Few /LPF (None Seen); MUCUS None Seen strn/LPF (None Seen); SQUAMOUS 0-3 Few /LPF (0-3)
[2022-01-05 06:43] LABS: BACTERIA-REFLEX None Seen /HPF (None Seen); CRYSTALS None Seen /LPF (None Seen); URINE RBC 1-2 Rare /HPF (NONE SEEN); URINE WBC-REFLEX 0-5 Rare /HPF (0-5)
[2022-01-05 07:24] VITALS: BP 123/78
[2022-01-05 10:43] LABS: HEMATOCRIT 46.1 % (42.0-52.0); HEMOGLOBIN 15.6 gm/dL (14.0-18.0); MCH 30.5 pg (26.0-34.0); MCHC 33.9 g/dL (28.0-37.0); MCV 90.2 fL (80.0-100.0); RBC 5.11 mil/uL (4.50-6.00); RDW 15.8 % (10.5-14.5); WBC 7.1 thou/uL (4.0-11.0)
[2022-01-05 10:52] LABS: CALCIUM 8.7 mg/dL (8.5-10.1); CREATININE 1.8 mg/dL (0.7-1.3); MAGNESIUM 2.5 mg/dL (1.8-2.4); POTASSIUM 3.7 mmol/L (3.5-5.1); TOTAL BILIRUBIN 0.6 mg/dL (0.2-1.0); TOTAL PROTEIN 8.1 g/dL (6.4-8.2)
[2022-01-05 11:18] VITALS: BP 128/82
[2022-01-05 15:27] VITALS: BP 126/79
--- NOTE | 2022-01-05 19:42 | NUR ---
RN ASSUMED PT'S CARE AT 0700-1900PM, PT IS A&OX4 , PT IS ON O2 2L/MIN/NC, PT'S VS AND O2SAT ARE STABLE AT DAY SHIFT, ID HAS SEEING THE PT, NEW ORDER RECEIVED, PT IS CONTINUING IV FLUID , IV ABX AND TREAT COVID MEDICATIONS, PT'S DAIRRHEA HAS IMPROVED, PT DENIES PAIN AND N/V. AT DAY SHIFT .
[2022-01-05 19:58] VITALS: BP 148/87
[2022-01-06 04:06] LABS: HIV ANTIBODY Non Reactive (Non Reactive)
[2022-01-06 04:20] VITALS: BP 147/82
[2022-01-06 04:53] LABS: ABSOLUTE NEUTROPHILS 10.6 thou/uL (1.4-8.2); BASOPHILS 0.2 % (0.0-2.0); HEMATOCRIT 43.2 % (42.0-52.0); HEMOGLOBIN 14.7 gm/dL (14.0-18.0); LYMPHOCYTES 5.8 % (24.0-44.0); MCH 30.6 pg (26.0-34.0); MCHC 34.1 g/dL (28.0-37.0); MCV 89.8 fL (80.0-100.0); MONOCYTES 9.4 % (1.0-8.0); PLATELET COUNT 290 thou/uL (150-400); POLYS 84.6 % (36.0-66.0); RBC 4.81 mil/uL (4.50-6.00); RDW 15.6 % (10.5-14.5); WBC 12.5 thou/uL (4.0-11.0)
[2022-01-06 04:57] LABS: DIRECT BILIRUBIN 0.2 mg/dL (<0.1-0.2); PHOSPHORUS 0.8 mg/dL (2.5-4.9)
[2022-01-06 04:59] LABS: ALBUMIN 2.7 g/dL (3.4-5.0); CALCIUM 8.8 mg/dL (8.5-10.1); CREATININE 1.5 mg/dL (0.7-1.3); MAGNESIUM 2.2 mg/dL (1.8-2.4); POTASSIUM 3.8 mmol/L (3.5-5.1); TOTAL BILIRUBIN 0.4 mg/dL (0.2-1.0); TOTAL PROTEIN 7.3 g/dL (6.4-8.2)
--- NOTE | 2022-01-06 05:22 | NUR ---
PT IS A&OX4 AND COMMUNICATES WANTS AND NEEDS TO STAFF. PRIOR HISTORY OF CVA WITH RESIDUAL LEFT SIDED WEAKNESS. PT IS ABLE TO STAND AND AMBULATE WITH SUPERVISION. PT C/O ABDOMINAL PAIN, STATED IT WAS R/T "THE WHITE PILL THEY GAVE ME THIS AFTERNOON," DETERMINED TO BE ZINC, WHICH PT THEN REFUSED AT 2200. MEDICATED WITH TYLENOL X1 WHICH WAS EFFECTIVE. VSS THROUGHOUT THE SHIFT. WILL CONTINUE TO OBSERVE FOR CHANGES
[2022-01-06 07:35] VITALS: BP 129/62
--- NOTE | 2022-01-06 09:07 | NUR ---
RD consult for high nutrition screen risk. Pt admit with covid pneumonia and symptoms include SOA, diarrhea, fatigue. Hx cva, pancreatitis, anxiety and depression. Wt loss 13 lb over 10 months which is not significant (6%). Intake 60-70% of meals and has oral supplement already ordered. On vitamin pack and IVF. presents low nutrition risk with appropriate nutrition interventions in place
--- NOTE | 2022-01-06 11:27 | NUR ---
INITIAL ASSESSMENT: Received consult for discharge planning. GABBY reviewed chart and spoke with nursing and attending physician. Pt was admitted from home due to COVID pneumonia/MANASA. Pt placed in Enhanced Isolation. Per chart, pt has received a COVID vaccination. Pt with hx of CVA, HTN, Depression, Anxiety. Pt is afebrile and on 3L of O2. Pt is on IV abx/IV steroids. Pt started on Remdesivir. Therapy evals ordered. GABBY placed call to pt's room. No answer. GABBY left voice message on listed contact number for pt: [phone]. Per notes, pt has concerns with returning back home alone and taking care of himself. GABBY will continue to reach pt to discuss discharge plan. GABBY contacted to determine pt's insurance and coverage for post-acute needs. GABBY is following to assist as needed with discharge planning.
[2022-01-06 11:48] VITALS: BP 144/88
--- NOTE | 2022-01-06 12:58 | EKG ---
[address] [address] ELECTROCARDIOGRAM REPORT Name: KAY CRAVEN Room #: 355-P ADM IN M.R.#: [id number] Admission: 01/04/22 Attend Phys: Alberto Kapoor MD Discharge: Date of : 61 Report #: [id number] [facility] Test Date: 2022-01-05 Test Time: 11:25:46 Pat Name: KAY CRAVEN Department: Room: 355 P Gender: M Electronics Lead: PATRICK : 1965 Requested By: Alberto Kapoor Order Number: [id number] MD: Aron Salas Measurements Intervals [place] Rate: 88 P: 51 [place]: 157 QRS: 9 QRSD: 86 T: 42 QT: 391 QTc: 473 Interpretive Statements Sinus rhythm Abnormal R-wave progression, early transition Compared to ECG 04/14/2021 20:23:49 No significant changes Electronically Signed On 01-06-2022 12:58:03 WOODYARD OPERATOR by Aron Salas [email or web address] <ELECTRONICALLY SIGNED> By: Aron Salas MD, [facility] 01/06/22 1258 1125 1125 Aron Salas MD, FACC /EPI
--- NOTE | 2022-01-06 13:55 | NUR ---
CARE ASSUMED THIS AM, ALERT AND ORIENTED X4. DENIES ANY NAUSEA AND VOMITTING. CURRENTLY ON 5L OF OXYGEN. SOB WITH EXERTION. USES URINAL, UP TO BATHROOM WITH 1 ASSIST. CONTINUE TO BE IN ENHANCED ISOLATION. FALL PRECAUTIOSN IN PLACE. DENIES ANY NEEDS AT MOMENT. WILL CONTINUE TO MONITOR.
[2022-01-06 15:51] VITALS: BP 140/86
[2022-01-06 21:01] VITALS: BP 121/66
[2022-01-07 05:23] LABS: HEMATOCRIT 43.1 % (42.0-52.0); HEMOGLOBIN 14.5 gm/dL (14.0-18.0); MCH 30.2 pg (26.0-34.0); MCHC 33.6 g/dL (28.0-37.0); MCV 89.9 fL (80.0-100.0); RBC 4.8 mil/uL (4.50-6.00); RDW 15.6 % (10.5-14.5); WBC 15.2 thou/uL (4.0-11.0)
--- NOTE | 2022-01-07 05:32 | NUR ---
PT SLOWLY PROGRESSING TOWARD GOALS. VSS THROUGHOUT THE SHIFT, BUT STILL REQUIRING SUPPLEMENTAL OXYGEN 5L (UP TO 8L WITH EXERTION). PT SLEPT BETTER TONIGHT THAN LAST NIGHT. STILL HAS C/O INTERMITTENT ABDOMINAL PAIN - RECEIVED ORDER FROM INFECTIOUS DISEASE TO D/C ZINC SUPPLEMENT WHICH MAY HAVE CONTRIBUTED TO ABDOMINAL DISCOMFORT. MAKES NEEDS KNOWN APPROPRIATELY. WILL CONTINUE TO OBSERVE FOR CHANGES
[2022-01-07 05:38] VITALS: BP 159/99
[2022-01-07 05:49] LABS: ALBUMIN 2.6 g/dL (3.4-5.0); CALCIUM 8.4 mg/dL (8.5-10.1); CREATININE 1.4 mg/dL (0.7-1.3); MAGNESIUM 1.9 mg/dL (1.8-2.4); POTASSIUM 3.5 mmol/L (3.5-5.1); TOTAL BILIRUBIN 0.4 mg/dL (0.2-1.0); TOTAL PROTEIN 6.8 g/dL (6.4-8.2)
[2022-01-07 05:57] LABS: DIRECT BILIRUBIN 0.2 mg/dL (<0.1-0.2); PHOSPHORUS 2.6 mg/dL (2.5-4.9)
[2022-01-07 07:44] VITALS: BP 146/89
[2022-01-07 11:16] VITALS: BP 120/72
--- NOTE | 2022-01-07 11:51 | NUR ---
GABBY reviewed chart and spoke with nursing and attending physician. Pt remains in Enhanced Isolation due to COVID. Pt is afebrile and on 6L of O2. Pt is on IV abx and IV steroids. Pt is on Remdesivir. Chest xray ordered for today. Pt listed as patient pay this morning. Per [employer], pt may have [employer] [facility] [place]. GABBY spoke with pt via phone. Introduced role of SW. Pt is alert/orientated x 4. Pt reports he lives alone in an apt. Prior to admission, pt was able to transfer himself into a w/c. Pt had his gall bladder removed at [facility] last month. Pt states he has used [facility] . Pt sees BRAILLE TRANSLATOR, Lizzy Vallecillo, for primary care. Pt states that he has had [employer] insurance since May of 2021. Pt was to switch to a new policy with [employer] on November 30, 2021. Pt states he has made his payments. Pt does not have his insurance cards with him. Pt confirmed his and SS#. SW notified UR. GABBY discussed case with [facility] facility rehab director for possible admission to [facility] acute rehab pending insurance verification. GABBY is following to assist as needed with discharge planning.
--- NOTE | 2022-01-07 12:18 | NUR ---
CARE TAKEN OVER THIS AM. PT OXYGEN NEED IS GOING, PT IS CURRENTLY ON 8L AFTER WALING TO THE BATH. SOB WITH EXERTION. INCENTIVE SPIROMETER GIVEN TO PT, AND EDUCARED ON HOW TO USE IT. FLUID STOP PER DR. SPENCER ORDER. USES URINAL, HAD A BM. UP IN THE CHAIR, ALARM ON. FALL PRECAUTIONS AND ENHAMCED ISOLATIONS IN PLACE. DENIES ANY NEEDS MARK, WILL CONTINUE TO MONITOR.
[2022-01-07 16:19] VITALS: BP 130/84
[2022-01-07 19:20] VITALS: BP 148/90
[2022-01-08 04:20] VITALS: BP 163/98
[2022-01-08 06:41] LABS: HEMATOCRIT 43.2 % (42.0-52.0); HEMOGLOBIN 14.5 gm/dL (14.0-18.0); MCH 29.7 pg (26.0-34.0); MCHC 33.5 g/dL (28.0-37.0); MCV 88.6 fL (80.0-100.0); RBC 4.88 mil/uL (4.50-6.00); RDW 15.4 % (10.5-14.5); WBC 14.6 thou/uL (4.0-11.0)
[2022-01-08 07:08] LABS: ALBUMIN 2.5 g/dL (3.4-5.0); CALCIUM 8.4 mg/dL (8.5-10.1); CREATININE 1.4 mg/dL (0.7-1.3); DIRECT BILIRUBIN 0.2 mg/dL (<0.1-0.2); MAGNESIUM 1.7 mg/dL (1.8-2.4); PHOSPHORUS 2.5 mg/dL (2.5-4.9); POTASSIUM 3.1 mmol/L (3.5-5.1); TOTAL BILIRUBIN 0.5 mg/dL (0.2-1.0); TOTAL PROTEIN 6.5 g/dL (6.4-8.2)
[2022-01-08 08:28] VITALS: BP 127/74
[2022-01-08 11:26] VITALS: BP 113/73
--- NOTE | 2022-01-08 11:28 | NUR ---
SW reviewed chart and spoke with nursing and attending physician. Pt remains in Enhanced Isolation due to COVID. Pt is afebrile and requiring 14L of O2. Pt is on IV abx, IV steroids and Remdesivir. [facility] consulted to evaluate pt for possible admission to inpt acute rehab. Pt's insurance was verified and confirmed. Pt has [employer] [facility] [place], which is currently active. [facility] rehab office coordinator to see if they are in-network with pt's insurance. SW spoke with pt via phone to provide update. Pt is agreeable with considering post-acute placement. SW is following to assist as needed with discharge planning.
--- NOTE | 2022-01-08 13:31 | NUR ---
CARE ASSUMED THIS AM, THIS AM PT O2 SAT WAS INTHE LOW 80'S. OXYGEN INCREASE TO 15L PER RT. DR. MAIN MADE AWARE, GAVE ORDERS FOR PULMONARY CONSULT. CONSULT CALLED IN AND DR. MON MADE AWARE. PT IC SURRENTLY ON OPTIFLOW, 85%, 55L SOB WITH EXERTION. PT ENCOURAGE TO USE INCENTIVE SPIROMETER AND PRONE WHEN CAN. CONTINUE PULSE OX ON PT. WILL CONTINUE TO MONITOR PT CLOSELY.
[2022-01-08 15:11] VITALS: BP 128/72
[2022-01-08 20:02] VITALS: BP 121/70
--- NOTE | 2022-01-09 00:52 | NUR ---
ACTEMRA ORDERED FOR PT. APPROACHED PT FOR PREMEDICATION PRIOR TO ACTEMRA DOSING BUT PT REFUSED. STATES HE WAS NOT AWARE THAT HE WOULD HAVE TO TAKE TYLENOL AND BENADRYL. "ONE BENADRYL KNOCKS ME OUT FOR A DAY AND YOU WANT ME TO TAKE TWO?!?" PT THEN REFUSED TO TAKE THE MEDICATION THOUGH [facility] INFORMED ABOUT THE USE. "I'LL TALK TO THE DOCTOR TOMORROW." PHARMACY INFORMED.
[2022-01-09 02:35] VITALS: BP 133/80
[2022-01-09 02:35] LABS: HEMATOCRIT 40.4 % (42.0-52.0); HEMOGLOBIN 13.6 gm/dL (14.0-18.0); MCH 30.1 pg (26.0-34.0); MCHC 33.7 g/dL (28.0-37.0); MCV 89.5 fL (80.0-100.0); RBC 4.52 mil/uL (4.50-6.00); RDW 15.8 % (10.5-14.5)
[2022-01-09 05:00] LABS: ALBUMIN 2.6 g/dL (3.4-5.0); CALCIUM 8.6 mg/dL (8.5-10.1); CREATININE 1.5 mg/dL (0.7-1.3); DIRECT BILIRUBIN 0.2 mg/dL (<0.1-0.2); PHOSPHORUS 3.7 mg/dL (2.5-4.9); TOTAL BILIRUBIN 0.4 mg/dL (0.2-1.0); TOTAL PROTEIN 5.8 g/dL (6.4-8.2)
[2022-01-09 05:03] LABS: POTASSIUM 4.1 mmol/L (3.5-5.1)
[2022-01-09 08:00] VITALS: BP 131/78
[2022-01-09 12:00] VITALS: BP 119/80
--- NOTE | 2022-01-09 13:29 | NUR ---
GABBY reviewed chart and spoke with nursing and attending physician. Pt remains in Enhanced Isolation due to COVID. Pt is afebrile and requiring optiflow. Pt is on IV abx and IV steroids. Remdesivir started. Pulm consulted. PT/OT ordered. GABBY discussed case with vocational rehabilitation teacher who states that is out of network with pt's insurance. Pt would be a candidate for inpt acute rehab when stable. GABBY is following to assist as needed with discharge planning.
[2022-01-09 15:54] VITALS: BP 116/74
[2022-01-09 19:27] VITALS: BP 141/88
[2022-01-10 03:22] VITALS: BP 151/98
[2022-01-10 07:41] VITALS: BP 139/90
--- NOTE | 2022-01-10 09:06 | NUR ---
PT ABLE TO SPEAK WITH DR. NEO REYES LAST NIGHT AND THEN WAS WILLING TO TAKE THE ORDERED ACTEMRA. PREMED AND DOSE GIVEN ORDERED WITHOUT ANY OBSERVABLE COMPLICATIONS.
[2022-01-10 11:28] VITALS: BP 114/76
--- NOTE | 2022-01-10 13:25 | NUR ---
GABBY reviewed chart and spoke with nursing and attending physician. Pt remains in Enhanced Isolation due to COVID. No weekend discharge planned. Pt is afebrile and was on optiflow earlier today. Pt is now on 6L of O2. Pt is on IV abx and IV steroids. GABBY spoke with pt via phone. Discharge disposition discussed: home with v. post-acute placement. Pt states he will need to see how therapy goes and then he will decide if he needs to consider post-acute placement. GABBY informed pt that is not in-network with his insurance. [facility] is in network and would be able to review pt's info if rehab is needed. Pt verbalized understanding. SW is following to assist as needed with discharge planning.
[2022-01-10 15:37] VITALS: BP 134/86
--- NOTE | 2022-01-10 17:57 | NUR ---
assumed care of pt at 0700. pt aox4 no acute distress. reporting no particular concerns. weaned to 6L NC. therapy efforts ongoing. ivf infusing per order. another round of remdesivir ordered per ID. calls out appropriately. good progress toward poc goals.
[2022-01-10 19:26] VITALS: BP 103/70
[2022-01-11 03:25] VITALS: BP 155/99
[2022-01-11 04:55] LABS: HEMATOCRIT 43.4 % (42.0-52.0); HEMOGLOBIN 14.5 gm/dL (14.0-18.0); MCH 30.1 pg (26.0-34.0); MCHC 33.4 g/dL (28.0-37.0); MCV 90.2 fL (80.0-100.0); PLATELET COUNT 393 thou/uL (150-400); RBC 4.81 mil/uL (4.50-6.00); WBC 12.5 thou/uL (4.0-11.0)
[2022-01-11 05:44] LABS: ALBUMIN 2.5 g/dL (3.4-5.0); CALCIUM 8.4 mg/dL (8.5-10.1); CREATININE 1.4 mg/dL (0.7-1.3); TOTAL BILIRUBIN 0.3 mg/dL (0.2-1.0); TOTAL PROTEIN 6.5 g/dL (6.4-8.2)
--- NOTE | 2022-01-11 06:00 | NUR ---
PROGRSS PT A/O X4. NON- AMBULATORY BUT REPOSITIONS SELF IN BED. 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 REPORTED A HEADACHE AND REQUESTED CLONAZEPAM, GIVEN WITH NO EFFECT. TYLENOL GIVEN FOR HEADACHE WITH EFFECT PT STATED HEADACHE RESOLVED AND SLEEPING AFTER. IV ABT'S ADMINISTERED ORDERED TAKING ADEQUAT PO FLUIDS AND EATING AN HS SNACK. IV INFILTRATED AND RESTARTD IN RH TOLERATED WELL.
--- NOTE | 2022-01-11 07:30 | NUR ---
PROGRESS PT A/O X4 LUNGS COARSE AND DIMINISHED DENIES COUGH AND SPUTUM. UP WITH 1 WALKER AND SBA. REMDESIVIR GIVEN ORDERED, IV TO LAC INFILTRATED NEW ONE PLACED RH. VOIDING QS CONTINUE POC.
[2022-01-11 07:43] VITALS: BP 126/77
[2022-01-11 07:46] LABS: ABSOLUTE NEUTROPHILS 9.5 thou/uL (1.4-8.2); MYELOCYTES 1 %
[2022-01-11 07:47] LABS: ANISOCYTOSIS 1+
[2022-01-11 11:14] VITALS: BP 111/73
[2022-01-11 15:15] VITALS: BP 118/78
[2022-01-11 19:10] VITALS: BP 152/89
[2022-01-12 04:34] VITALS: BP 138/92
[2022-01-12 06:14] LABS: HEMATOCRIT 42.3 % (42.0-52.0); HEMOGLOBIN 14.2 gm/dL (14.0-18.0); MCH 30.2 pg (26.0-34.0); MCHC 33.5 g/dL (28.0-37.0); MCV 90.2 fL (80.0-100.0); PLATELET COUNT 388 thou/uL (150-400); RBC 4.69 mil/uL (4.50-6.00); RDW 15.6 % (10.5-14.5); WBC 12.4 thou/uL (4.0-11.0)
[2022-01-12 06:28] LABS: ALBUMIN 2.5 g/dL (3.4-5.0); CALCIUM 8.3 mg/dL (8.5-10.1); CREATININE 1.3 mg/dL (0.7-1.3); POTASSIUM 3.9 mmol/L (3.5-5.1); TOTAL BILIRUBIN 0.3 mg/dL (0.2-1.0); TOTAL PROTEIN 6.2 g/dL (6.4-8.2)
--- NOTE | 2022-01-12 07:13 | NUR ---
PROGRESS PT A/O X4 LUNGS COARSE AND DIMINISHED. ON 6 LITERS VIA NC. VOIDING QS CLEAR YELLOW URINE HAD A BM PER BEDPAN. PT STATES HE IS AMBULATORY AT HOME BUT HAS A LIMP BUT DOESN'T GET OOB HERE. VSS TELEMETRY INTACT CONTINUE POC.
[2022-01-12 07:33] VITALS: BP 133/90
[2022-01-12 09:35] LABS: ABSOLUTE NEUTROPHILS 9.8 thou/uL (1.4-8.2)
[2022-01-12 09:46] LABS: ANISOCYTOSIS SLIGHT
--- NOTE | 2022-01-12 09:57 | NUR ---
Assumed care of pt this AM. Pt is A&O x4, SR on the monitor, on 6L NC. Pt denies any pain this AM. Pt upset stating that he has told "multiple doctors" that he cannot take the zinc that is ordered for him as it "upsets his stomach". Doesn't understand why it is still on his MAR & why "people want to make me feel worse". Explained that pt has right to refuse medications & that this nurse will discuss w/ provider to DC. Pt on continuous pulse ox, sating WNL. High fall precautions in place. Frequent rounding.
[2022-01-12 11:20] VITALS: BP 127/78
[2022-01-12 17:30] VITALS: BP 117/72
[2022-01-12 20:55] VITALS: BP 130/80
[2022-01-13 02:35] VITALS: BP 140/81
[2022-01-13 05:49] LABS: ABSOLUTE NEUTROPHILS 10.7 thou/uL (1.4-8.2); BASOPHILS 0.1 % (0.0-2.0); EOSINOPHILS 0.3 % (0.0-3.0); HEMOGLOBIN 14.1 gm/dL (14.0-18.0); LYMPHOCYTES 6.1 % (24.0-44.0); MCH 29.7 pg (26.0-34.0); MCHC 32.8 g/dL (28.0-37.0); MCV 90.4 fL (80.0-100.0); MONOCYTES 11.3 % (1.0-8.0); PLATELET COUNT 349 thou/uL (150-400); POLYS 82.2 % (36.0-66.0); RBC 4.75 mil/uL (4.50-6.00); WBC 13.1 thou/uL (4.0-11.0)
[2022-01-13 06:06] LABS: ALBUMIN 2.5 g/dL (3.4-5.0); CALCIUM 8.9 mg/dL (8.5-10.1); CREATININE 1.3 mg/dL (0.7-1.3); POTASSIUM 4.1 mmol/L (3.5-5.1); TOTAL BILIRUBIN 0.4 mg/dL (0.2-1.0)
[2022-01-13 07:53] VITALS: BP 107/73
--- NOTE | 2022-01-13 08:47 | NUR ---
progress pt progressing towards goals, vss, tele intact reading sr skin c/d/i no areas of breakdown noted. pt refuses scd's and repositions self in bed tolerating remdesivir. using isp and on 6 to 7 liters o2. denies pain continue poc.
[2022-01-13 11:12] LABS: T-SPOT.TB Negative
[2022-01-13 11:32] VITALS: BP 107/70
--- NOTE | 2022-01-13 11:40 | NUR ---
Followup: remains hospitalized for covid pneumonia. Wts are stable, and intake continue to average 60-95%. Recommend continue to offer oral supplement. Remains low nutrition risk
--- NOTE | 2022-01-13 11:54 | NUR ---
SW reviewed chart and spoke with nursing and attending physician. Enhanced Isolation precautions have been discontinued. Pt is on 7L of O2 at rest. Pt is on IV abx and IV steroids. Pt to finish course of Remdesivir tomorrow. Recommendation made for pt to consider post-acute placement for continued rehab services prior to returning home. GABBY met with pt at bedside to discuss rehab. SW explained that is out of network with pt's insurance. SW discussed alternate acute rehab options. Pt requests referral to be sent to [facility] due to location. SW explained process for evaluation and need for insurance auth. Pt verbalized understanding. SW faxed referral to [facility] and notified [facility] liaison of new referral. GABBY is following to assist as needed with discharge planning.
[2022-01-13 15:32] VITALS: BP 106/66
--- NOTE | 2022-01-13 18:55 | NUR ---
ASUMED PATIENT CARE THIS AM AT 0700. PATIENT REMAINED IN BED THROUGHOUT THE SHIFT. DENIED ANY COMPLAINTS THROUGHOUT THE SHIFT. FOLLOWED THE PLAN OF CARE.
--- NOTE | 2022-01-13 19:48 | NUR ---
PT RESTING IN BED WATCHING TV. O2 PER NC 6L. SOA WITH CONVERSATION. LUNGS COARSE, ABD DISTENDED. BED ALARM ON. PT REQUESTING HS SLEEPING MEDS EARLY ENOUGH THAT THEY START WORKING.
[2022-01-14 03:03] VITALS: BP 118/80
[2022-01-14 05:51] LABS: ALBUMIN 2.5 g/dL (3.4-5.0); CALCIUM 8.3 mg/dL (8.5-10.1); CREATININE 1.3 mg/dL (0.7-1.3); POTASSIUM 4.3 mmol/L (3.5-5.1); TOTAL BILIRUBIN 0.4 mg/dL (0.2-1.0); TOTAL PROTEIN 5.9 g/dL (6.4-8.2)
[2022-01-14 05:52] LABS: ABSOLUTE NEUTROPHILS 12.9 thou/uL (1.4-8.2); BASOPHILS 0.1 % (0.0-2.0); EOSINOPHILS 0.1 % (0.0-3.0); HEMATOCRIT 43.5 % (42.0-52.0); HEMOGLOBIN 14.1 gm/dL (14.0-18.0); LYMPHOCYTES 5.5 % (24.0-44.0); MCH 29.7 pg (26.0-34.0); MCHC 32.6 g/dL (28.0-37.0); MCV 91.2 fL (80.0-100.0); MONOCYTES 9.7 % (1.0-8.0); PLATELET COUNT 331 thou/uL (150-400); POLYS 84.6 % (36.0-66.0); RBC 4.76 mil/uL (4.50-6.00); RDW 16.1 % (10.5-14.5); WBC 15.3 thou/uL (4.0-11.0)
[2022-01-14 08:08] VITALS: BP 123/85
--- NOTE | 2022-01-14 10:37 | NUR ---
GABBY reviewed chart and spoke with nursing and attending physician. GABBY faxed clinical updates and PT note from yesterday to MAR for review. Notified [facility] liaison. Will need additional therapy notes to be faxed today. [facility] will need to obtain insurance auth for admission. GABBY is following to assist as needed with discharge planning.
[2022-01-14 11:44] VITALS: BP 116/76
[2022-01-14 16:12] VITALS: BP 129/83
[2022-01-14 18:59] VITALS: BP 129/76
[2022-01-15 03:26] VITALS: BP 121/84
[2022-01-15 05:20] LABS: HEMATOCRIT 43.4 % (42.0-52.0); HEMOGLOBIN 14.3 gm/dL (14.0-18.0); MCH 30.1 pg (26.0-34.0); MCV 91.2 fL (80.0-100.0); RBC 4.76 mil/uL (4.50-6.00); RDW 16.1 % (10.5-14.5); WBC 17.8 thou/uL (4.0-11.0)
[2022-01-15 05:56] LABS: CALCIUM 8.6 mg/dL (8.5-10.1); CREATININE 1.3 mg/dL (0.7-1.3); POTASSIUM 4.7 mmol/L (3.5-5.1)
[2022-01-15 07:42] VITALS: BP 112/71
[2022-01-15 11:30] VITALS: BP 115/83
--- NOTE | 2022-01-15 15:49 | NUR ---
GABBY reviewed chart and spoke with nursing and attending physician. Pt is slowly progressing towards goals for discharge. GABBY faxed clinical and therapy updates to [facility] liaison for review. Pt required 12-13L of O2 with physical therapy today. [facility] is able to accommodate 10L with exertion. Will need insurance auth for admission to [facility]. GABBY is following to assist as needed with discharge planning.
[2022-01-15 16:20] VITALS: BP 120/67
[2022-01-15 19:12] VITALS: BP 119/75
[2022-01-16] VITALS (7 sets, daily range): BP systolic 99–111; BP diastolic 59–81
--- NOTE | 2022-01-16 04:53 | NUR ---
PT IS SLOWLY PROGRESSING TOWARD GOAL OF DISCHARGE, THOUGH IS STILL REQUIRING O2 PER NASAL CANNULA AT 7L WITH SATS BETWEEN 90-96%. A&OX4 AND COMMUNICATES WANTS AND NEEDS TO STAFF EFFECTIVELY. VSS THROUGHOUT THE SHIFT. VOIDS PER URINAL. SLEPT COMFORTABLY THROUGHOUT MOST OF THE NIGHT. WILL CONTINUE TO OBSERVE FOR CHANGES
[2022-01-16 05:20] LABS: HEMATOCRIT 42.8 % (42.0-52.0); HEMOGLOBIN 14.8 gm/dL (14.0-18.0); MCH 31.7 pg (26.0-34.0); MCHC 34.5 g/dL (28.0-37.0); MCV 91.9 fL (80.0-100.0); RBC 4.66 mil/uL (4.50-6.00); WBC 10.3 thou/uL (4.0-11.0)
[2022-01-16 05:27] LABS: CALCIUM 8.5 mg/dL (8.5-10.1); CREATININE 1.3 mg/dL (0.7-1.3); MAGNESIUM 2.3 mg/dL (1.8-2.4); POTASSIUM 4.4 mmol/L (3.5-5.1)
--- NOTE | 2022-01-16 15:34 | NUR ---
PER GABBY, NINA PIERRE spoke with nursing and attending physician. Pt to have CTA today. Pt remains on O2 at rest and with activity. Pt required up to 12L with physical therapy yesterday. GABBY spoke with pt via phone to provide update. Discussed with pt that [facility] is following pt for admission when pt is medically stable. Will need insurance authorization from [facility]. Pt verbalized understanding and is agreeable with discharge plan. GABBY updated Fawn, liaison with [facility]. SW to fax clinical and therapy updates to [facility] tomorrow for review. GABBY notified by UR that pt's insurance is [facility]. [facility] to re-evaluate pt tomorrow. [facility] is able to accommodate 8L of O2 with exertion. GABBY is following to assist as needed with discharge planning. ARLEN Castro
[2022-01-17 04:15] VITALS: BP 98/64
[2022-01-17 05:24] LABS: HEMOGLOBIN 14.2 gm/dL (14.0-18.0); MCH 30.6 pg (26.0-34.0); MCV 92.9 fL (80.0-100.0); RBC 4.63 mil/uL (4.50-6.00); RDW 16.7 % (10.5-14.5); WBC 8.5 thou/uL (4.0-11.0)
--- NOTE | 2022-01-17 05:43 | NUR ---
PT SLOWLY PROGRESSING TOWARD GOAL OF DISCHARGE. PT STARTED ON ELIQUIS YESTERDAY R/T PE'S NOTED ON CT SCAN, TOLERATING WELL THUS FAR. PT WITH NO C/O PAIN. VOIDS PER URINAL. BP BORDERLINE LOW, ASYMPTOMATIC. VOIDING PER URINAL. WILL CONTINUE TO OBSERVE FOR CHANGES
[2022-01-17 05:59] LABS: CALCIUM 8.1 mg/dL (8.5-10.1); CREATININE 1.3 mg/dL (0.7-1.3); MAGNESIUM 2.3 mg/dL (1.8-2.4); POTASSIUM 4.7 mmol/L (3.5-5.1)
[2022-01-17 08:41] VITALS: BP 117/81
[2022-01-17 08:51] VITALS: BP 131/65
--- NOTE | 2022-01-17 12:18 | 2DMMODE ---
[facility] [place] [address] 2 D/M-MODE ECHOCARDIOGRAM Name: KAY CRAVEN Room #: 355-P ADM IN M.R.#: [id number] Admission: 01/04/22 Attend Phys: Alberto Kapoor MD Discharge: Date of : 61 Report #: [id number] THIS REPORT FOR: cc: ISABELLA DURAN MD Physician not on staff Aron Salas MD [facility] ~ APPROVED REPORT Study performed: 01/17/2022 10:58:59 EXAM: Comprehensive 2D, Doppler, and color-flow Echocardiogram Patient Location: Bedside Room #: [facility] Status: routine BSA: 2.04 HR: 82 bpm BP: 117/81 mmHg Rhythm: NSR Other Information Study Quality: Good Indications Pulmonary Embolism 2D Dimensions IVSd: 10.41 (7-11mm) LVOT Diam: 19.81 (18-24mm) LVDd: 40.29 mm PWd: 10.23 (7-11mm) Ascending Ao: 28.66 (22-36mm) LVDs: 24.68 (25-40mm) Left Atrium: 21.75 (27-40mm) Aortic Root: 26.03 mm IVC: 14.00 mm Aortic Valve AoV Peak Alek.: 0.90 m/s AO Peak Gr.: 3.27 mmHg LVOT Max P.09 mmHg LVOT Max V: 0.72 m/s YORDAN Vmax: 2.47 cm2 Mitral Valve E/A Ratio: 1.1 MV Decel. Time: 242.90 ms MV E Max Alek.: 0.65 m/s MV A Alek.: 0.61 m/s [facility] [address] [address] 2 D/M-MODE ECHOCARDIOGRAM Name: KAY CRAVEN Room #: 355-P [facility].#: [id number] Admission: 01/04/22 Attend Phys: Alberto Kapoor, Discharge: Date of : 61 Report #: [id number] MV PHT: 70.44 ms IVRT: 124.57 ms Pulmonary Valve PV Peak Alek.: 0.67 m/s PV Peak Gr.: 1.80 mmHg Pulmonary Vein P Vein S: 0.22 m/s P Vein A: 0.19 m/s P Vein D: 0.32 m/s P Vein A Dur.: 96.9 msec P Vein S/D Ratio: 0.69 Left Ventricle The left ventricle is normal size. There is normal LV segmental wall motion. There is normal left ventricular wall thickness. Left ventricular systolic function is normal. The left ventricular ejection fraction is within the normal range. LVEF is 60-65%. This study is not technically sufficient to allow evaluation of the LV diastolic function. Right Ventricle The right ventricle is normal size. The right ventricular systolic function is normal. Atria The left atrium size is normal. The right atrium size is normal. Right atrium size is normal. Right atrium is at the upper limits of normal. Aortic Valve The aortic valve is normal in structure. No aortic regurgitation is present. There is no aortic valvular stenosis. There is normal aortic valve excursion. No hemodynamically significant valvular aortic stenosis. Mitral Valve The mitral valve is normal in structure. There is no mitral valve regurgitation noted. No evidence of mitral valve stenosis of prolapse. The patient may have had a mitral valve commissurotomy. Doming of the mitral leaflets is noted. The posterior leaflet is pliable and mobile while the anterior leaflet is calcified and immobile. The anterior leaflet is pliable and mobile while the posterior leaflet is calcified and immobile. Both leaflets of the mitral valve are heavily calcified and immobile. Both leaflets of the mitral valve are pliable and mobile. The patient is status-post mitral valve commissurotomy. The patient may have had status-post mitral valve commissurotomy. [address] [address] 2 D/M-MODE ECHOCARDIOGRAM Name: KAY CRAVEN Room #: 355-P [facility] IN M.R.#: [id number] Admission: 01/04/22 Attend Phys: Alberto Kapoor, Discharge: Date of : 61 Report #: [id number] Tricuspid Valve The tricuspid valve is normal in structure. There is no tricuspid valve regurgitation noted. Pulmonic Valve The pulmonary valve is normal in structure. There is no pulmonic valvular regurgitation. Great Vessels The aortic root is normal in size. IVC is normal in size and collapses >50% with inspiration. Pericardium There is no pericardial effusion. <Conclusion> Normal left ventricle size/wall thickness Ejection fraction 60% Normal right ventricle size/function Normal aortic valve structure and function Mild mitral annular calcification No evidence of mitral valve insufficiency No tricuspid valve insufficiency No pericardial effusion Normal aortic root size. <ELECTRONICALLY SIGNED> By: rAon Salas MD, FACC 01/17/221217 17 17 Aron Salas MD, FACC /INF
[2022-01-17 12:24] VITALS: BP 110/72
--- NOTE | 2022-01-17 14:38 | NUR ---
SW reviewed chart and spoke with nursing and attending physician. Pt is on 7L of O2. Pt with PE and has been started on Eliquis. Pt to have an echo today. SW discussed case with [facility] liaison. [facility] to re-evaluate pt today. Will need insurance authorization for post-acute placement. GABBY is following to assist as needed with discharge planning.
[2022-01-17 15:40] VITALS: BP 114/78
[2022-01-17 19:22] VITALS: BP 111/72
[2022-01-18 03:48] VITALS: BP 120/81
[2022-01-18 04:42] LABS: HEMATOCRIT 43.2 % (42.0-52.0); HEMOGLOBIN 14.3 gm/dL (14.0-18.0); MCH 30.5 pg (26.0-34.0); MCHC 33.2 g/dL (28.0-37.0); RBC 4.7 mil/uL (4.50-6.00); RDW 16.8 % (10.5-14.5); WBC 6.6 thou/uL (4.0-11.0)
[2022-01-18 04:50] LABS: CALCIUM 8.5 mg/dL (8.5-10.1); CREATININE 1.3 mg/dL (0.7-1.3); MAGNESIUM 2.2 mg/dL (1.8-2.4); POTASSIUM 4.3 mmol/L (3.5-5.1)
--- NOTE | 2022-01-18 06:26 | NUR ---
Patient is alert and oiented x4 this shift. His currentl on 6L of oxygen and tolerating well. Patient is on CC/ tele and has run sinus rhythm this shif. Patients last BM was 01/17. Guerrero gets up x1 assist with a bedside commode. Juan Daniel has no skin issus at tis time. Patient has an iv in his right ad that is patnetn and salin locked. Patient will continue to be monitord.
[2022-01-18 07:46] VITALS: BP 119/80
[2022-01-18 11:12] VITALS: BP 108/71
[2022-01-18 15:34] VITALS: BP 114/78
--- NOTE | 2022-01-18 18:26 | NUR ---
PT A/O X 4. PT ON 4 L NC. PT IN CHAIR MOST OF SHIFT. PT WAITING FOR AUTHORIZATION FROM INSURANCE TO BE ADMITTED REHAB. FALL PRECAUTIONS IN PLACE. WILL CONTINUE TO MONTIOR.
[2022-01-18 20:32] VITALS: BP 122/77
[2022-01-19 02:57] VITALS: BP 113/81
[2022-01-19 03:40] LABS: HEMOGLOBIN 14.4 gm/dL (14.0-18.0); MCHC 32.8 g/dL (28.0-37.0); MCV 91.3 fL (80.0-100.0); RBC 4.82 mil/uL (4.50-6.00); RDW 16.2 % (10.5-14.5); WBC 6.2 thou/uL (4.0-11.0)
[2022-01-19 03:46] LABS: CALCIUM 8.3 mg/dL (8.5-10.1); CREATININE 1.4 mg/dL (0.7-1.3); POTASSIUM 4.2 mmol/L (3.5-5.1)
--- NOTE | 2022-01-19 06:31 | NUR ---
AURE IS ALERT AND ORIENTED X4. PATIENT IS ON ROOM AIR. PATIENT IS CC/ TELE AND HAS BEEN RUNNING SINUS RHYTHM THIS SHIFT. KEVINETN IS CONTINENT OF URINE WITH USE OF URINAL. PATIENT DECLIEND TO BE OUT OF HIS BED THIS SHIFT.. PAIENT NO SKIN ISSUES TO REPORT AT THIS TIME. PAINETS IVS ARE PATENT AND SALINE LOCKED. PATIENT WILL CONTINUE TO BE MONITORED.
[2022-01-19 07:36] VITALS: BP 117/77
[2022-01-19 15:48] VITALS: BP 123/80
[2022-01-19 20:00] VITALS: BP 132/95
--- NOTE | 2022-01-20 04:34 | NUR ---
PT MAKING PROGRESS TOWARDS GOALS. INITIALLY ON O2 AT 1L PER NC. O2 SAT NOTED TO BE AT 87%. OXYGEN INCREASED TO 2L BY RT. DENIED ANY SOA OR ANY COMPLAINTS.
[2022-01-20 05:20] VITALS: BP 122/70
[2022-01-20 07:47] VITALS: BP 140/94
--- NOTE | 2022-01-20 09:40 | NUR ---
Followup: medically progressing and likely admit to [facility] soon. Eating 50-100% of meals, wts are now stable in 180s. Low nutrition risk
--- NOTE | 2022-01-20 13:56 | NUR ---
SW reviewed chart and spoke with nursing and attending physician. Pt is progressing towards goals for discharge. Pt is ready for discharge to post-acute care. SW met with pt at bedside to discuss discharge plan. Pt is agreeable with staying at [facility] for inpt acute rehab. SW notified [facility] rehab department manager. [facility] will need to withdraw/cancel their request for insurance authorization. GABBY left voice message for Darlin, in intake at [facility]. Received voice message from Darlin, stating their request for auth has been cancelled. [facility] to submit for auth today. Awaiting input from insurance at this time. GABBY is following to assist as needed with discharge planning.
[2022-01-20 16:43] VITALS: BP 118/77
--- NOTE | 2022-01-20 19:06 | NUR ---
AUTHORIZATION REQUESTED FROM PATIENT'S INSURANCE FOR ACUTE INPATIENT REHAB STAY. CLINICAL INFORMATION FAXED TO INSURANCE. WILL AWAIT INSURANCE RESPONSE.
[2022-01-20 19:25] VITALS: BP 118/68
--- NOTE | 2022-01-20 19:45 | NUR ---
RN ASSUMED PT'S CARE AT 0700-1900PM, PT IS A&OX4, PT IS ON O2 2L/MIN/NC, PT'S VS ARE STABLE AT DAY SHIFT, BUT PT STILL HAS SOB WITH ACTIVITIES, PT DENIES PAIN AND N/V AT DAY SHIFT.
[2022-01-20 20:01] VITALS: BP 108/67
--- NOTE | 2022-01-21 00:14 | NUR ---
UNABLE TO PALPATE PULSES TO BOTH FEET. ASSESSMENT COMPLETED WITH SKIN BLANCHING TO BOTH FEET WHICH WAS LESS THAN 3 SECONDS. CAPILLARY REFIL CHECKED ON BOTH FEET WAS ALSO LESS THAN SECONDS. PER RN REPORT THERE WAS NOT INTERVENTION DONE DURING ANGIOGRAM.
[2022-01-21 04:24] VITALS: BP 97/65
--- NOTE | 2022-01-21 17:12 | NUR ---
Awaiting response from pt's ins plan/[facility]. Pt did well with therapy today and may be able to consider going home with hh/home o2 if insurance denies. UR also notes pt's insurance may term on 01/27/22 due to lack of premium payments over the past couple of months. The business office is sending someone to talk him about this and see if we can assist with his missed payments. Will follow.
[2022-01-21 17:34] VITALS: BP 92/63
--- NOTE | 2022-01-21 19:03 | NUR ---
RN ASSUMED PT'S CARE AT 0700AM, PT IS A&OX4, PT IS ON O2 2L/MIN/NC, PT'S VS ARE STABLE AT DAY SHIFT, PT STILL HAS SOB WITH ACTIVITIES, PT IS CONTINUING TO WORK WITH PT/OT, PT'S WEAKNESS HAS IMPROVED.
[2022-01-21 19:55] VITALS: BP 119/84
[2022-01-21 20:02] VITALS: BP 106/56
[2022-01-22 03:51] VITALS: BP 109/77
--- NOTE | 2022-01-22 04:49 | NUR ---
PT MAKING SLOW PROGRESS TOWARDS GOALS. ON O2 AT 3L PER NC OVERNIGHT. DENIED ANY SOA WHILE AT REST. NO COMPLAINTS VOICED. PT AWAITING TO GO TO REHAB AND HOPING TO BE OFF OXYGEN BY THE TIME HE IS DISCHARGED.
[2022-01-22 07:06] VITALS: BP 120/84
--- NOTE | 2022-01-22 11:35 | NUR ---
DISCHARGE NOTE: GABBY reviewed chart and spoke with nursing and attending physician. [facility] did receive insurance auth for admission to in acute rehab. Auth provided for one day. [facility] STAKE SETTER met with pt earlier today to discuss. Pt has progressed to the point that pt is medically stable to discharge home with HH/Home O2. GABBY met with pt at bedside to discuss discharge plan. Pt states he wants to d/c home today. Options discussed for HH/Home O2 providers. No preference voiced. GABBY verified pt's home address and phone number. GABBY spoke with [employer] , who he has used in the past. [facility] does not accept pt's current insurance policy. GABBY faxed [facility]. Spoke with Mónica in intake, who states pt is not showing up in [employer] system. Pt's face sheet updated today with correct spelling of pt's name. GABBY refaxed to [facility]. Spoke with Mónica, who states pt's insurance shows as being "inactive." Pt has not paid December premium. Insurance to term on 01/27/2022. They will not be able to accept pt on service. Pt will also have a copay for each HH visit. GABBY updated UR and Director of Case Mgmt. Business office/[employer] met with pt yesterday to discuss payment of monthly premium. Rest/exercise oximetry ordered to be completed today to determine home O2 needs. Pt will need transportation home. GABBY is following to assist as needed with discharge planning.
--- NOTE | 2022-01-22 11:47 | NUR ---
LION MORGAN REQUESTING PT BE SEEN ON DAY OF D/C, TODAY. SHE HAS ORDERED PT AN ORTHOTIC BUT IT IS NOT AVAILABLE YET. PT DECLINING P.T. DUE TO ANXIETY AND FRUSTRATION FROM HAVING TO DO P.T. AND WALK AGAIN WITH R.T. FOR EXERCISE OXIMETRY. WITH EAR CLIP, PT ON RA IN BED SUP AT 100%. CONTACTED R.T. ABOUT DISCREPANCIES BETWEEN EAR SENSOR AND FINGER SENSOR, AND CURRENT READINGS. WILL TRY BACK IN PM TO SEE IF AFO AVAILABLE, FOR INSTRUCTION AND GAIT WITH AFO.
[2022-01-22] MEDS ORDERED: ELIQUIS5 M1 PO (15:20)
[2022-01-22 15:32] VITALS: BP 124/84
[2022-01-22 15:40] VITALS: BP 124/84
[2022-01-22 15:56] VITALS: BP 124/84
[2022-01-22 16:48] VITALS: BP 124/84
--- NOTE | 2022-01-22 16:55 | NUR ---
DISCHARGE NOTE: DISCHARGE ORDERS IN. PT RECIEVED HIS AFO BRACE, FITTEN BY PERSONNEL. NO OXYGEN REQUIRED AFTER SATURATION EXERCISE AND REST COMPLETED BY RT. WENT THROUGH D/C INSTRUCTIONS WITH PT AND NEW MED INFO. ALL BELONGINGS WITH PT. IV AND TELE D/C. PT TAKNE DOWN VIA WHEELCHAIR WITH TRANSPORTATION.
== END 2022-01-22 17:05 | disposition home health service (06) | DRG 177 ==
LOC: ER 16:55 → EROBS 18:33 → 3W 18:33
PROVIDERS: Emergency Medicine; Hospitalist; Specialist; ADMIT Internal Medicine; ATTEND Internal Medicine
PROC: XW033E5 Introduction of Remdesivir Anti-infective into Peripheral Vein, Percutaneous Approach, New Technology Group 5 (ICD-10-PCS; principal; 2022-01-05)
PROC: 5A0945A Assistance with Respiratory Ventilation, 24-96 Consecutive Hours, High Flow/Velocity Cannula (ICD-10-PCS; 2022-01-08)
PROC: 5A0935A Assistance with Respiratory Ventilation, Less than 24 Consecutive Hours, High Flow/Velocity Cannula (ICD-10-PCS; 2022-01-10)
PROC: 5A0935A Assistance with Respiratory Ventilation, Less than 24 Consecutive Hours, High Flow/Velocity Cannula (ICD-10-PCS; 2022-01-11)
PROC: 5A0935A Assistance with Respiratory Ventilation, Less than 24 Consecutive Hours, High Flow/Velocity Cannula (ICD-10-PCS; 2022-01-15)
PROC: 5A0935A Assistance with Respiratory Ventilation, Less than 24 Consecutive Hours, High Flow/Velocity Cannula (ICD-10-PCS; 2022-01-16)
PROC: 5A0935A Assistance with Respiratory Ventilation, Less than 24 Consecutive Hours, High Flow/Velocity Cannula (ICD-10-PCS; 2022-01-20)
DX: U07.1 COVID-19 (principal); J12.82 Pneumonia due to coronavirus disease 2019; J80 Acute respiratory distress syndrome; I26.99 Other pulmonary embolism without acute cor pulmonale; N17.9 Acute kidney failure, unspecified; I12.9 Hypertensive chronic kidney disease with stage 1 through stage 4 chronic kidney disease, or unspecified chronic kidney disease; F32.9 Major depressive disorder, single episode, unspecified; F41.9 Anxiety disorder, unspecified; N18.9 Chronic kidney disease, unspecified; K75.9 Inflammatory liver disease, unspecified; Z90.49 Acquired absence of other specified parts of digestive tract; Z88.6 Allergy status to analgesic agent; Z88.1 Allergy status to other antibiotic agents; Z88.0 Allergy status to penicillin
CPT/HCPCS: 10879